=== PATIENT | female | born 1945 | race Caucasian/White ===

== ENCOUNTER 2020-03-08 00:13 | Outpatient (CLI) | payer MEDICARE, SELFPAY ==
[2020-03-08 17:34] LABS: SARS-CoV-2 RNA PCR Negative
== END 2020-03-08 00:14 | disposition home or self-care (01) ==
LOC: ANHCOVIDDT 00:14
PROVIDERS: PCP Family Medicine Adolescent Medicine; Visit Provider Orthopaedic Surgery
DX: Z01.812 Encounter for preprocedural laboratory examination (principal); Z11.59 Encounter for screening for other viral diseases
CPT/HCPCS: 87635; C9803; U0003

== ENCOUNTER 2020-03-10 00:19 | Day surgery (SDC) | payer MEDICARE, SELFPAY ==
[2019-11-22 13:35] VITALS: BMI 32.1
--- NOTE | 2020-03-07 14:18 | PC.NURSE ---
PT DENIES ANY CHANGE IN HEALTH OR MEDICATIONS SINCE PREVIOUS INTERVIEW. NEW DATE, TIME AND INSTRUCTIONS FOR PROCEEDURE REVIEWED WITH PT.
[2020-03-10] VITALS (14 sets, daily range): BP systolic 143–184; BP diastolic 63–82; PULSE 63–126; RESP 12–24; TEMP 36.1–36.3; O2SAT 97–100
[2020-03-10] MEDS: LACTATED RINGERS 1,000 ML 30 ML IV CONT ×2 (06:30→08:29)
--- NOTE | 2020-03-10 06:51 | WPDANESEPPF ---
Anes - Initial Pre Proc Eval Procedure: Operation Date: 03/10/20 07:30 Proposed Procedures p Left Knee Arthroscopy, Partial Medial And Lateral Meniscectomy, Debridement Of Osteochondral Defect - Mich Armando MD Date/Time: 03/10/20 06:51 Surgeon: Mich Armando MD Pre Op Diagnosis: Left Knee Medial & Lateral Meniscus Tears Patient Data Age: 75 Gender: F Height: 1.57 m Weight: 79.7 kg Last Vital Signs Temp 36.1 C L 03/10/20 06:22 Pulse 74 03/10/20 06:22 Resp 18 03/10/20 06:22 BP 160/75 H 03/10/20 06:22 Pulse Ox 98 03/10/20 06:22 Allergies Allergy/AdvReac Type Severity Reaction Status Date / Time cephalexin AdvReac Unknown NAUSEAA, Verified 03/10/20 06:32 VOMITING Home Medications Medication Instructions Recorded Confirmed Type gabapentin 100 mg HS 08/07/19 03/10/20 History pantoprazole 40 mg PO DAILY 08/07/19 03/10/20 History piroxicam 20 mg DAILY 08/07/19 03/10/20 History ropinirole 2 mg HS 08/07/19 03/10/20 History acetaminophen [Tylenol Extra 500 mg PO Q6H PRN 11/22/19 03/10/20 History Strength] calcium carbonate-vitamin D3 1 cap PO DAILY 11/22/19 03/10/20 History [Calcium 600 + D(3)] Patient hx anesthesia problems: none Family hx anesthesia problems: none PMFSH Past Medical History Medical History (Updated 03/10/20 @ 06:55 by Ian Alvarez MD) Arthritis Deep vein thrombosis 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 GERD (gastroesophageal reflux disease) Obesity Osteoarthritis of left knee Osteochondral defect of femoral condyle Restless leg syndrome Surgical History Surgical History History of hysterectomy Social History Social History Smoking status: Never smoker Gender identity (if verbalized by the patient): Female Anes - Eval Final PreProcedure Day of Procedure 03/10/20 06:51 Patient weight: obese Heart: regular rate and rhythm Lungs: clear to auscultation and normal air movement Airway: Mallampati scale class II Neurological: alert and oriented Last oral intake: >/= 8 hours ASA classification: II Emergent: no Anesthetic plan: proceed Anesthesia type and monitoring: general LMA Informed Consent: The patient's anesthetic plan and its attendant risks and benefits were discussed with the patient/family/POA. Questions were solicited and answers provided to the satisfaction of the patient/family/POA.
--- NOTE | 2020-03-10 07:14 | WPDHPUPDATE1 ---
History and Physical Update Update Date/Time: 03/10/20 07:14 History and Physical has been reviewed, including an updated exam of the patient. There are NO changes in the patient's condition. Risks, benefits, and alternatives have been discussed and questions answered. Patient agrees to proceed with procedure.
[2020-03-10] MEDS: ceFAZolin 2 GM/D5W 50 ML 2 GM/50 ML BAG IVPB (07:21)
[2020-03-10] MEDS: BUPIVACAINE/EPINEPHRINE 0.5% 10 ML VIAL 20 ML INFILTRATE (07:46)
--- NOTE | 2020-03-10 08:27 | PM.PROC ---
Procedure Note - Detailed Date of procedure: 03/10/20 Pre-op diagnosis: Left Knee Medial & Lateral Meniscus Tears 1. Lateral condyle OCD lesion. 2. Medial and lateral meniscus tear. Post-op diagnosis: same Procedure performed: 1. Debridement of lateral chondyle osteochondral defect. 2. Arthroscopic partial medial and lateral meniscectomy. Description of procedure: The large 2 cm lateral condyle defect was unstable. The lateral meniscus was torn extensively in the same lateral region. The fragment was detached from the lateral synovium and removed with the grasper. The base of the defect on the femur was debrided. Both the medial and lateral meniscus were treated with meniscectomy. Grade four chondromalacia was seen diffusely in the medial and lateral compartements. Anesthesia: GETA Surgeon: Mich Armando MD Estimated blood loss (mL): 5 Complications: None Condition: stable Findings: Procedure Details: The patient was identified and the surgical site confirmed and signed in the preoperative holding area. Antibiotics were started per protocol. She was brought to the operative room and transferred to the OR table. A general anesthetic was administered. Supine position with the operative lower extremity position in the leg payton after placement of a well padded tourniquet. The leg support was lowered and the contralateral limb was supported with a soft bolster. The knee was prepped and draped in the usual sterile fashion. A time-out was performed. The portal sites were marked and infiltrated with 0.5% Marcaine 20 mL. The limb was exsanguinated and the tourniquet inflated to 300 mL Hg. Standard inferolateral and inferomedial portals were established. Inflow was obtained with the saline pump. The camera was introduced. Diagnostic inspection of the joint was accomplished. The menisci were debrided with the arthroscopic shaver and punches until stable. The lateral defect was removed as described above. The arthroscopic instruments were removed. The tourniquet released and wounds closed with subcutaneous 3-0 Monocryl absorbable suture. Steri strips and a sterile dressing were applied. A light elastic wrap was placed. The patient was extubated and brought to the recovery room in stable condition.
[2020-03-10] MEDS: hydrALAZINE HCL 20 MG/ML VIAL 5 MG IV PUSH (09:31)
--- NOTE | 2020-03-10 09:58 | SUR.PHASEI ---
[address] shirley of pt bp being consistently>170 order given for hydralizine 5mgx2. 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
[2020-03-10] MEDS: hydrALAZINE HCL 20 MG/ML VIAL 10 MG IV PUSH (11:03)
--- NOTE | 2020-03-10 12:48 | SUR.PHASEII ---
1100 dr shirley notified of pt bp still being 170-180 systolic, hr 70-80's, 10mg iv hydralizine ordered per dr shirley
--- NOTE | 2020-03-10 12:50 | SUR.PHASEII ---
1200 dr shirley in post op, wants pt to go to emergency room. 1205 pt wheeled to er in a recliner per lauren perez rn. pt alertx4 on room air. spouse in surgery parking lot, notified by yokasta bennett, that pt is going to er and that he can go see her there. pt admitted then taken to er room, report given to er nurse by lauren perez rn.
--- NOTE | 2020-03-10 13:35 | SUR.PHASEII ---
1100 pain on lt side sikh has just about subsided per pt
--- NOTE | 2020-03-10 13:45 | SUR.PHASEII ---
11:40am patient returned from bathroom to room. Patient was crying. RN asked patient what was wrong. Patient said my face is numb on the left side. RN contacted Dr. Alvarez by phone and at this time he said to continue to monitor. Patient was all upset a couple minutes later, heart rate had increased to 1teens-120s, and she said, My throat feels weird and I'm scared. RN contacted Dr. Alvarez again and he came bedside about 11:50am to assess patient. He then told RN to take patient to ED for a stroke work-up. RN contacted PACU sr. manager corporate communications for next steps in getting patient to ED for a stroke work-up. Patient was transported to ED about 12:05pm by chair. RN spoke with patient's , Ed, and told him to report to the ED where he could be with his . RN assured him that she was safe for the time being.
== END 2020-03-10 12:05 | disposition home or self-care (01) ==
PROVIDERS: PCP Family Medicine Adolescent Medicine; Visit Provider Orthopaedic Surgery
PROC: (CPT 29870; principal; 2020-03-10 07:30)
DX: M23.332 Other meniscus derangements, other medial meniscus, left knee (principal); M23.362 Other meniscus derangements, other lateral meniscus, left knee; M89.8X6 Other specified disorders of bone, lower leg; M94.262 Chondromalacia, left knee; G25.81 Restless legs syndrome; K21.9 Gastro-esophageal reflux disease without esophagitis; E66.9 Obesity, unspecified; Z68.32 Body mass index [BMI] 32.0-32.9, adult
CPT/HCPCS: 29880; J0131; J0360; J0690; J1100; J2405; J2704; J3010; J7120

== ENCOUNTER 2020-03-10 12:09 | Inpatient (IN) | payer MEDICARE, SELFPAY ==
[2020-03-10] VITALS (9 sets, daily range): BP systolic 153–185; BP diastolic 78–123; PULSE 73–115; RESP 16–20; TEMP 36.1–36.4; O2SAT 94–99; BMI 32.5
--- NOTE | ~2020-03-10 | US_ITS ---
EXAMINATION: US carotid duplex BI DATE: 03/10/2020 17:36 INDICATION: Possible CVA, slurred speech TECHNIQUE: Grayscale, color Doppler, and pulsed Doppler images of the cervical carotid arteries were obtained. The degree of vessel stenosis is placed in one of the following categories: normal, <50%, 5 0-69%, >=70% but less than near-occlusion, near-occlusion, or total occlusion. Note that percent sten osis relative to normal distal artery lumen diameter is indirectly measured from velocity measurement s as described by Chandler, et al. Radiology 2003; 229:340-346. COMPARISON: None. FINDINGS: RIGHT: The right common carotid artery (CCA) peak systolic velocity (PSV) is 71 cm/s. The right internal car otid artery (ICA) PSV is 58 cm/s. The right ICA end-diastolic velocity (EDV) is 20 cm/s. The right IC A/CCA PSV ratio is 0.8. Grayscale and color Doppler images yield an estimate of less than 50% diamete r reduction from plaque in the ICA. The external carotid artery (ECA) PSV is 75 cm/s. There is antegr olive flow in the right vertebral artery. LEFT: The left CCA PSV is 76 cm/s. The left ICA PSV is 48 cm/s. The left ICA EDV is 17 cm/s. The left ICA/C CA PSV ratio is 0.6. Grayscale and color Doppler images yield an estimate of less than 50% diameter r eduction from plaque in the ICA. The ECA PSV is 81 cm/s. There is antegrade flow in the left vertebra l artery. IMPRESSION: 1. <50% stenosis in the right internal carotid artery. 2. <50% stenosis in the left internal carotid artery. Reviewed, dictated and finalized at location A.
--- NOTE | ~2020-03-10 | CT_ITS ---
EXAMINATION: CT brain wo con DATE: 03/10/2020 12:27 INDICATION: Slurred speech. Hypertension. TECHNIQUE: Computed tomography (CT) of the head was performed without intravenous contrast. The mA wa s adjusted according to patient size. Iterative reconstruction technique was employed. Exam dose: 60 5.33 mGy-cm total exam DLP. COMPARISON: None FINDINGS: No intracranial mass lesion or hemorrhage, midline shift or mass effect is evident. CT is n ot sensitive for detection of hyperacute ischemic cerebrovascular accident. No subdural or epidural hematoma. Normal ventricular size. No fracture or bone destruction of the cranial vault. The mastoid air cells and paranasal sinuses are normally developed and aerated. IMPRESSION: No acute intracranial finding The CT head examination results were telephone by Dr. Sexton to emergency room physician Dr. Berumen on 03/10/2020 at 1232 hours Reviewed, dictated and finalized at Location A. Reviewed, dictated and finalized at location A. IMPRESSION: No acute intracranial finding The CT head examination results were telephone by Dr. Sexton to emergency room ph ysician Dr. Berumen on 03/10/2020 at 1232 hours
--- NOTE | ~2020-03-10 | XR_ITS ---
EXAMINATION: XR chest 1V portable EXAM DATE: 03/10/2020 13:08 INDICATION: Stroke protocol. TECHNIQUE: Portable AP frontal chest x-ray was obtained. Comparison is made to prior examination from There are bony degenerative changes. . FINDINGS: The lungs are clear. There are no pleural effusions. Cardiac silhouette is prominent but magnified on this AP technique. There is no pneumothorax suspected. The bones and soft tissues are unremarkable. IMPRESSION: No acute cardiopulmonary findings. Reviewed, dictated and finalized at location B.
--- NOTE | ~2020-03-10 | MR_ITS ---
EXAMINATION: MR brain/brain stem wo/w con EXAM DATE: 03/10/2020 18:31 INDICATION: Left top lip numbness paresthesia. Temporary left hand numbness. Stroke like symptoms. TECHNIQUE: Magnetic resonance imaging (MRI) of the brain/brain stem obtained without contrast. Candice al T1, axial diffusion, gradient echo (T2*), T1, T2, FLAIR sequences obtained. There is no prior st udy for comparison. FINDINGS: There are no areas of restricted diffusion to suggest acute infarction. There is no acute hemorrhage seen on the T2*, a hemosiderin sensitive sequence. No intraparenchymal brain mass lesion. There is mild periventricular and subcortical T2/FLAIR signal hyperintensity, nonspecific but probab ly related to small vessel ischemic disease (microangiopathy). There is mild prominence of the sulc i and ventricles related to cerebral atrophy. There are no extra-axial collections. Flow voids are seen in the cerebral arteries on the T2-weighted sequences consistent with their expected patency. The orbits are unremarkable. Soft tissue is unremarkable. IMPRESSION: 1. No acute intracranial findings. 2. Chronic age related findings. Reviewed, dictated and finalized at location G.
[2020-03-10 12:17] LABS: Glucose Point of Care 122 (65-105)
--- NOTE | 2020-03-10 12:25 | ED.NEUROSD ---
HPI - Neuro Symptoms/Deficit General Chief Complaint: Suspected CVA Stated Complaint: possible CVA Time Seen by Provider: 03/10/20 12:23 Source: patient and family Mode of arrival: wheelchair Limitations: no limitations History of Present Illness HPI Narrative: Pt presented via outpatient surgery with Dr. Armando for strokelike symptoms. Patient presented after having left lateral and medial meniscal tear repair by Dr. Armando, when following the procedure she was found to be hypertensive with difficult to control blood pressure, and found to have some lip and left-sided facial numbness as well as numbness in her left hand. With concern for strokelike symptoms, patient was transported to our emergency department for assessment. At the time of assessment, patient states symptoms have resolved. Symptoms lasted less than 1 hour. She is tearful, but denies any difficulty with speech or numbness in her face, upper or lower extremity. Patient denies any pain. She denies any chest pain or shortness of breath. No history of stroke or TIA in the past. Related Data Home Medications Medication Instructions Recorded Confirmed gabapentin 100 mg HS 08/07/19 03/10/20 pantoprazole 40 mg PO DAILY 08/07/19 03/10/20 piroxicam 20 mg DAILY 08/07/19 03/10/20 ropinirole 2 mg HS 08/07/19 03/10/20 Calcium 600 + D(3) 1 cap PO DAILY 11/22/19 03/10/20 acetaminophen [Tylenol Extra 500 mg PO Q6H PRN 11/22/19 03/10/20 Strength] Allergies Allergy/AdvReac Type Severity Reaction Status Date / Time cephalexin AdvReac Unknown NAUSEAA, Verified 03/10/20 06:32 VOMITING Review of Systems Review of Systems: Narrative: CONSTITUTIONAL: Denies fever, chills, or sweats. EYES: Denies visual changes, redness, or discharge. ENT: Denies rhinorrhea, congestion, sore throat, or otalgia. CARDIOVASCULAR: Denies chest pain, palpitations, or edema. RESPIRATORY: Denies cough or dyspnea. GASTROINTESTINAL: Denies abdominal pain, nausea, vomiting, or diarrhea. GENITOURINARY: Denies dysuria or hematuria. SKIN: Denies rash or itching. MUSCULOSKELETAL: Denies back pain, joint pain, or myalgia. NEUROLOGIC: Denies headache, numbness, or weakness. [facility] Past Medical History Medical History Arthritis Deep vein thrombosis 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 GERD (gastroesophageal reflux disease) Obesity Osteoarthritis of left knee Osteochondral defect of femoral condyle Restless leg syndrome Surgical History Surgical History History of hysterectomy Family History Family History (Updated 03/10/20 @ 16:14 by Elsa Zamora RN) Mother Cerebrovascular accident Sibling History of blood clots Hypertension Sibling History of blood clots Sibling Diabetes mellitus Hypertension Breast cancer Son Hypertension Social History Social History Smoking status: Never smoker Second hand tobacco smoke exposure: Yes (Spouse smokes currently) Alcohol intake: never Substance use: never Substance use type: does not use Gender identity (if verbalized by the patient): Female Spiritual care concerns: No Exam Narrative: Exam Narrative: GENERAL: Awake, alert, conversant, tearful HEAD: Normocephalic, atraumatic. EYES: PERRLA and EOMI. ENT: Nares clear, no rhinorrhea or epistaxis. Mucous membranes moist. NECK: Supple. CHEST: No respiratory distress, breathing even and non labored HEART: Regular rate, sinus rhythm ABDOMEN:Non distended, non tender EXTREMITIES: Left lower extremity is bandaged, decreased range of motion as would be expected postoperatively. Patient able to wiggle toes, able to lift leg off the bed. SKIN: Warm, dry, no rash. NEURO:No focal deficits. Alert and oriented x3. Finger to nose intact bilaterally. EOMs intact without nystagmus. No facial droop/asymmetr
[2020-03-10 12:47] LABS: Basophils Percent Auto 0.3 % (0.2-1.2); Hematocrit 44.6 % (37.0-47.0); Hemoglobin 14.5 g/dL (12.0-15.0); Immature Granulocyte Absolute 0.08 K/mm3 (0.00-0.031); Immature Granulocyte Percent A 0.9 % (0-0.5); Mean Corpuscular HGB Conc 32.5 g/dl (32-36); Mean Corpuscular Hemoglobin 31.8 pg (26-34); Mean Corpuscular Volume 97.8 fl (80-100); Mean Platelet Volume 9.7 fl (7.4-10.4); Monocytes Absolute Auto 0.1 K/mm3 (0.1-0.6); Neutrophils Absolute Auto 8.4 K/mm3 (1.3-6.7); Neutrophils Percent Auto 93.4 % (45.5-73.1); Platelet Count Result 252 k/mm3 (150-375); Red Blood Count 4.56 M/mm3 (4.2-5.4); Red Cell Distribution Width 13.6 % (11.5-14.5)
[2020-03-10 12:59] LABS: Alanine Aminotransferase 15 U/L (4-35); Albumin Level 4.3 g/dL (3.5-5.1); Alkaline Phosphatase 134 U/L (38-126); Aspartate Amino Transferase 24 U/L (14-36); Bilirubin,Total 0.2 mg/dL (0.2-1.3); Blood Urea Nitrogen 18 mg/dL (7-17); Calcium 9.5 mg/dL (8.4-10.2); Carbon Dioxide 25 mmol/L (22-30); Chloride 109 mmol/L (98-107); Estimated CRCL calculation 50 ml/min; Estimated Glomerular Filt Rate > 60; Glucose 140 mg/dL (65-105); Potassium 3.7 mmol/L (3.4-5.0); Sodium 142 mmol/L (137-145)
[2020-03-10] MEDS: SODIUM CHLORIDE 0.9% IV 1,000 ML 999 ML IV CONT (13:08)
[2020-03-10] MEDS: ONDANSETRON INJ 4 MG/2 ML VIAL IV PUSH (13:08)
[2020-03-10 13:11] LABS: Troponin I < 0.012 ng/mL (0.000-0.034)
[2020-03-10 13:13] LABS: Partial Thromboplastin Time 28.9 SECONDS (22.3-36.8)
[2020-03-10 13:29] LABS: Add Urine Microscopic? YES; Appearance Urine Clear (Clear); Bilirubin Urine Negative (Negative); Blood Urine Negative (Negative); Color Urine Colorless (Yellow); Glucose Urine UA 1+ mg/dL (Negative); Ketones Urine Negative (Negative); Leukocyte Esterase Ur Negative LEU/UL (Negative); Nitrate Urine Negative (Negative); Protein Urine Negative (Negative); RBC Urine 0-2 /hpf (0-2); Specific Grav Ur 1.009 (1.001-1.035); Urobilinogen Urine Negative mg/dL (<2.0)
[2020-03-10 13:36] LABS: Lymphocytes Percent Auto 4.4 % (18.3-44.2)
--- NOTE | 2020-03-10 13:55 | ECG_ITS ---
Measurements Intervals [place] Rate: 112 P: 33 MN: 177 QRS: -34 QRSD: 92 T: 51 QT: 350 QTc: 478 Interpretive Statements SINUS TACHYCARDIA LEFT AXIS DEVIATION POOR R WAVE PROGRESSION, ANTERIOR LEADS BASELINE ARTIFACT- I, II, III, AVR, AVL, AVF, V1-V6 ABNORMAL ECG Electronically Signed On 03-10-2020 14:04:14 CDT by Remington Onofre D.O.
--- NOTE | 2020-03-10 15:52 | PC.NURSE ---
This patient, Lizette Stauffer, was admitted to Medical Room 246-01. Patient/family oriented to hospital policies and general routines including ID bracelet, bed and alarms, visiting hours, pain management, procedures, bathroom and other care routines, personal items, smoking policy, room service/diet, and visiting hours. Valuables list has been completed. Information on how to activate the Rapid Response Team has been discussed. Patient/Family are encouraged to report perceived risks to care and to ask questions if they do not understand what they are told or what they should do.
--- NOTE | 2020-03-10 17:00 | PM.IMHP ---
H&P: HPI History of Present Illness Chief complaint: Left-sided paresthesias. Narrative: Lizette Stauffer is a pleasant and relatively healthy 75-year-old female with restless leg syndrome, GERD, and history of DVT who presented to the emergency department earlier this afternoon from outpatient surgery, status post left meniscal tear repair, for evaluation of left-sided paresthesias. She was in her usual state health when she reported for surgery today and it sounds as though her surgery was uneventful. Postoperatively, she complained of feeling the need to urinate frequently and was also experiencing a headache in the left restoration region. It was noted that her systolic blood pressures were running continuously above 170, and she was given hydralazine 10 milligrams without much benefit. At 11:40, the patient returned from the restroom and at that time was tearful and anxious. She reported to the nurse that the left side of her face felt numb and that she was having some tingling in the left-sided fingers and toes as well as feelings of difficulty swallowing. At the time my evaluation, she has some mild paresthesias of the left upper lip and she has had complete resolution of the paresthesias in fingers and toes. She continues to have a sharp headache, now diffusely across the forehead, and urinary urgency and frequency. She has no history of hypertension however she believes that her blood pressure has been elevated before in the postoperative phase. She has not had any auditory or visual changes today, but she goes on to say that rarely she will experience ?blurry lines? in the left visual field that are fleeting and occur at random. Additionally, she reports that on occasion she feels as though she has a difficult time swallowing which she has always attributed to GERD. She does not typically have headaches nor does she have a history of migraines. She is not experiencing vertigo. There has been no mention of facial droop and she denies dysarthria. No focal weakness. She has not had chest pain, palpitations, pleuritic pain, or shortness of breath. No dysuria or hematuria. Regarding her recent surgery, she is having minimal discomfort of the left knee. Review of Systems Review of Systems: Narrative: Twelve systems were reviewed with pertinent positives and negatives as per HPI. No recent cold or flu symptoms. She denies fever, chills, and sweats. No recent travel or sick contacts. She denies cough and shortness of breath. She has a history of DVT in 2016 for which she took warfarin. She denies nausea and vomiting. Except as documented, all other systems were reviewed and are negative. [facility] Past Medical History Medical History (Updated 03/10/20 @ 17:34 by Kirstie Valadez PA-C) Arthritis Deep vein thrombosis (~10/2015) 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 GERD (gastroesophageal reflux disease) Osteoarthritis of left knee Osteochondral defect of femoral condyle Restless leg syndrome Surgical History Surgical History (Updated 03/10/20 @ 17:29 by Kirstie Valadez PA-C) History of hysterectomy History of left knee surgery (~02/2020) Partial lateral and medial meniscectomy with debridement of lateral condyle osteochondral defect. History of lumbar surgery Radiofrequency neurotomy. Prolapse of female pelvic organs (~06/2016) Status post colpocleisis per Dr. Bunch. Family History Family History Mother Cerebrovascular accident Sibling History of blood clots Hypertension Sibling History of blood clots Sibling Diabetes mellitus Hypertension Breast cancer Son Hypertension Social History Social History (Updated 03/10/20 @ 17:30 by Kirstie Valadez PA-C) Social History: Surrogate decision maker: Gilberto Stauffer, spouse. Code status: Full code. Smoking status: Never smoker Second hand tobacco smoke exposure: Yes (Spouse smokes currently) Alcohol
[2020-03-10] MEDS: ACETAMINOPHEN 500 MG TABLET PO (18:45)
--- NOTE | 2020-03-10 18:50 | PC.NURSE ---
Patient bladder scan revealed 62mL's in bladder pre voiding.
[2020-03-10 19:51] LABS: Troponin I 0.069 ng/mL (0.000-0.034)
[2020-03-10] MEDS: GABAPENTIN 100 MG CAPSULE BY MOUTH (20:03)
[2020-03-10 20:51] LABS: Thyroid Stimulating Hormone Reflex 0.575 uIU/mL (0.465-4.68)
[2020-03-11] VITALS (11 sets, daily range): BP systolic 143–160; BP diastolic 68–92; PULSE 60–87; RESP 16–17; TEMP 36–36.5; O2SAT 96–99
[2020-03-11] MEDS: ACETAMINOPHEN 500 MG TABLET PO (03:34)
[2020-03-11 05:15] LABS: Hematocrit 37.6 % (37.0-47.0); Hemoglobin 12.2 g/dL (12.0-15.0); Mean Corpuscular HGB Conc 32.4 g/dl (32-36); Mean Corpuscular Hemoglobin 31.9 pg (26-34); Mean Corpuscular Volume 98.4 fl (80-100); Mean Platelet Volume 10.2 fl (7.4-10.4); Platelet Count Result 250 k/mm3 (150-375); Red Blood Count 3.82 M/mm3 (4.2-5.4); Red Cell Distribution Width 13.8 % (11.5-14.5); White Blood Count 10.2 K/mm3 (4.5-10.0)
[2020-03-11 05:28] LABS: Alanine Aminotransferase 12 U/L (4-35); Albumin Level 3.5 g/dL (3.5-5.1); Alkaline Phosphatase 106 U/L (38-126); Aspartate Amino Transferase 21 U/L (14-36); Bilirubin,Total 0.2 mg/dL (0.2-1.3); Blood Urea Nitrogen 14 mg/dL (7-17); Calcium 8.8 mg/dL (8.4-10.2); Carbon Dioxide 25 mmol/L (22-30); Chloride 108 mmol/L (98-107); Cholesterol 178 mg/dL (0-200); Estimated CRCL calculation 57 ml/min; Estimated Glomerular Filt Rate > 60; Glucose 98 mg/dL (65-105); HDL Direct 66 mg/dL; Magnesium 2.1 mg/dL (1.6-2.3); Potassium 3.8 mmol/L (3.4-5.0); Sodium 136 mmol/L (137-145); Triglycerides 82 mg/dL (<150)
[2020-03-11 05:40] LABS: LDL Cholesterol Direct 79 mg/dL
[2020-03-11] MEDS: PANTOPRAZOLE 40 MG TABLET PO (08:24)
[2020-03-11] MEDS: ASPIRIN 81 MG CHEWABLE TABLET PO (08:24)
[2020-03-11 08:41] LABS: Troponin I 0.088 ng/mL (0.000-0.034)
--- NOTE | 2020-03-11 09:05 | ECG_ITS ---
Measurements Intervals [place] Rate: 78 P: 0 CO: 149 QRS: -35 QRSD: 94 T: 18 QT: 389 QTc: 443 Interpretive Statements SINUS RHYTHM LEFT AXIS DEVIATION VOLTAGE CRITERIA FOR LVH BORDERLINE ECG Electronically Signed On 03-11-2020 13:14:56 CDT by Remington Onofre D.O.
[2020-03-11 09:49] LABS: Troponin I 0.078 ng/mL (0.000-0.034)
--- NOTE | 2020-03-11 12:05 | PM.IMPN ---
Progress Note: A&P Assessment and Plan (1) Hypertensive urgency: Code(s): I16.0 - Hypertensive urgency Status: Acute Assessment and Plan: Blood pressure postoperatively was as high as 182/123, and was treated with hydralazine in PACU with minimal change. Later readings were in 160s/80s without further medication and thus I think some of her readings can be attributed to her anxiety, which has improved. BP this morning was 143/68. For now we will continue to monitor blood pressures closely and add p.r.n. medication for severe hypertension. She has not required any further prn Hydralazine (2) Paresthesias: Code(s): R20.2 - Paresthesia of skin Status: Acute Assessment and Plan: Etiology is not entirely clear and had she not had the sensation changes in the left lip, perhaps we could have blamed the other paresthesias on positioning during her surgery in addition to her anxiety postoperatively. Given her elevated blood pressures, there is concern for possible ischemia. Paresthesias of the lip and toes have resolved but persists in bilateral fingertips. CT and MRI of the brain are both negative for infarction or hemorrhage. Carotid Doppler ultrasounds demonstrate <50% stenosis of right and left ICA Echocardiogram have been ordered and will await results Dr. Rangel was consulted by the ED physician and his input is appreciated. (3) Elevated troponin: Code(s): R79.89 - Other specified abnormal findings of blood chemistry Status: Acute Assessment and Plan: Initial troponin was <0.012. On repeat increased to 0.069, 0.088, 0.078. She denies chest pain and vitals are stable. Repeat EKG does not demonstrate ST changes. Cardiology has been consulted and recommendations are appreciated. Echo has been performed and will await results. At this time, I do not believe this is related to ACS. It is possible this related to neurologic process, although neuro workup has been negative. Continue to monitor on telemetry. (4) 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: Code(s): M23.307 - Other meniscus derangements, unspecified meniscus, left knee Status: Acute Assessment and Plan: Postoperative day 1 s/p partial lateral and medial left meniscectomy with debridement of left lateral condyle osteochondral defect by Dr. Armando. Wound care and DVT prophylaxis deferred to Dr. Armando. Continue analgesics as needed for pain (5) Restless leg syndrome: Code(s): G25.81 - Restless legs syndrome Status: Acute Assessment and Plan: Continue ropinirole at bedtime. (6) GERD (gastroesophageal reflux disease): Code(s): K21.9 - Gastro-esophageal reflux disease without esophagitis Status: Acute Assessment and Plan: She endorses occasional dysphagia which she attributes to GERD. Continue pantoprazole. Recommend outpatient GI consult for possible endoscopy given occasional dysphagia with GERD. Subjective Date/time seen: 03/11/20 12:05 Interval history: Date of service: 03/11/2020 Ms. Stauffer reports she is doing better today. She complains of tingling in her fingertips bilaterally, but denies numbness or tingling in perioral region or feet as she was previously experiencing. She complains of feeling flushed in her face and she was dizzy this morning. She also complains of headache in her left temporal region and behind her eye. She denies visual changes, blurred vision. or double vision. She denies dysphagia or speech changes. She denies chest pain, shortness of breath, arm pain, jaw pain, diaphoresis, palpitations, lightheadedness, or anxiety. She is having mild discomfort in her knee with movement but her pain is well controlled. She is urinating regularly and denies dysuria or hematuria. She has not had a bowel movement since surgery. Her appetite has been good. Review of Systems Review of Systems: Narrat
[2020-03-11 12:51] LABS: Troponin I 0.076 ng/mL (0.000-0.034)
--- NOTE | 2020-03-11 13:47 | PM.CNCAR ---
Assessment and Plan Assessment and plan (1) Elevated troponin: Code(s): R79.89 - Other specified abnormal findings of blood chemistry Status: Acute Assessment and Plan: Probably related to recent knee surgery and uncontrolled hypertension. Doubt ACS as no symptoms related to it. Echo does not show any wall motion abnormalities. Troponin trending down. (2) Paresthesias: Code(s): R20.2 - Paresthesia of skin Status: Acute (3) Hypertensive urgency: Code(s): I16.0 - Hypertensive urgency Status: Acute Assessment and Plan: Start Bystolic 10 mg daily. Advise to maintain a low sodium diet. Keep her one more day to monitor BP with this medication. History of Present Illness History of Present Illness Consult date/time: 03/11/20 13:47 Reason for consult: Hypertension and elevated troponins. 75 yr old woman with history of left leg DVT in 2016 presented to hospital for left meniscal surgery yesterday and had noted high BP perioperatively. Yesterday she also reported lip numbness, left fingers and toes tingling, headache. Today only left finger tingling is present and lip and toes symptoms resolved. She admits to intermittent left finger tingling in the past. Denies chest pain, sob, palpitations, orthopnea, edema. She reports normally limited at walking 1/2 block due to chronic back pain and then left knee pain. Troponins showed mild elevated at 0.088 that trended down to 0.076. Echo shows EF is normal at 65-70%, grade I diastolic dysfunction, mild AI, trace TR. EKG shows sinus tachycardia with BRWP. Telemetry shows sinus tach up to 140 bpm, patient thinks she was getting up to go to restroom at that time. MRI brain is unremarkable. Carotid duplex is unremarkable, CXR is unremarkable. Reason For Visit: Left-sided paresthesias. Review of Systems Review of Systems: All systems reviewed & are unremarkable except as noted in HPI and below Constitutional: Constitutional: Reports as per HPI and Denies fatigue Cardiovascular: Cardiovascular: Reports as per HPI, Denies chest pain and Denies leg edema Respiratory: Respiratory: Reports as per HPI and Reports dyspnea on exertion Gastrointestinal: Gastrointestinal: Reports as per HPI and Denies abdominal pain Genitourinary: Genitourinary: Reports as per HPI Musculoskeletal: Musculoskeletal: Reports as per HPI, Reports back pain and Reports arthralgias Neurologic: Reports as per HPI and Reports headache(s) [facility] Past Medical History Medical History (Updated 03/11/20 @ 13:04 by Valerie Otoole PA-C) Arthritis Deep vein thrombosis (~10/2015) 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 GERD (gastroesophageal reflux disease) Osteoarthritis of left knee Osteochondral defect of femoral condyle Restless leg syndrome Surgical History Surgical History (Updated 03/10/20 @ 17:29 by Kirstie Valadez PA-C) History of hysterectomy History of left knee surgery (~02/2020) Partial lateral and medial meniscectomy with debridement of lateral condyle osteochondral defect. History of lumbar surgery Radiofrequency neurotomy. Prolapse of female pelvic organs (~06/2016) Status post colpocleisis per Dr. Bunch. Family History Family History Mother Cerebrovascular accident Sibling History of blood clots Hypertension Sibling History of blood clots Sibling Diabetes mellitus Hypertension Breast cancer Son Hypertension Social History Social History (Updated 03/10/20 @ 17:30 by Kirstie Valadez PA-C) Social History: Surrogate decision maker: Gilberto Stauffer, spouse. Code status: Full code. Smoking status: Never smoker Second hand tobacco smoke exposure: Yes (Spouse smokes currently) Alcohol intake: never Substance use: never Substance use type: does not use Additional living arrangements comments: Patient lives with her in [place]. Gender ident
[2020-03-11] MEDS: NEBIVOLOL HCL 5 MG TABLET 10 MG PO (15:06)
--- NOTE | 2020-03-11 16:38 | ECHO_ITS ---
Patient Info Name: Lizette Stauffer Age: 75 years : 1945 Gender: Female Ht: 62 in Wt: 178 lbs BSA: 1.91 m2 HR: 63 bpm BP: 143 / 68 mmHg Technical Quality: Good Exam Date: 03/11/2020 9:27 AM Exam Location: [facility] Pulmonary Exam Room: 246 Patient Status: Outpatient Admit Date: 03/10/2020 Staff Ordering Physician: Kirstie Valadez PA-C [employer] Bleacher: Reva Goss RDCS Attending Provider: Valerie Otoole PA-C Referring Physician: Rory GRACE; Exam Type: CA echo doppler color flow Study Info Indications - s/p op htn stroke symptoms Complete two-dimensional, color flow and Doppler transthoracic echocardiogram is performed. Summary 1. Left ventricular chamber dimension is normal. 2. Left ventricular systolic function is hyperdynamic, estimated at >70%. 3. The left ventricular diastolic function is grade I diastolic dysfunction. 4. E/e' 10 is mildly elevated. 5. There is mild aortic valve regurgitation. 6. The mitral valve has mildly calcified annulus. 7. There is trace tricuspid valve regurgitation. Left Ventricle E/e' 10 is mildly elevated. Left ventricular chamber dimension is normal. Left ventricular systolic function is hyperdynamic, estimated at >70%. The left ventricular diastolic function is grade I diastolic dysfunction. Right Ventricle Right ventricular chamber dimension is normal. Right ventricular systolic function is normal. Left Atria Left atrial chamber dimension is normal. Right Atria Right atrial chamber dimension is normal. Aortic Valve The aortic valve is trileaflet. There is no aortic valve stenosis. There is mild aortic valve regurgitation. Pulmonic Valve There is no pulmonic regurgitation. Mitral Valve The mitral valve has mildly calcified annulus. There is no mitral valve stenosis. There is no mitral valve regurgitation. Tricuspid Valve RVSP is not calculated due to an inadequate TR jet. There is trace tricuspid valve regurgitation. Pericardium/Pleural There is no pericardial effusion. Inferior Vena Cava Normal inferior vena cava with >50% collapse upon inspiration consistent with normal right atrial pressure, 5 mmHg. Aorta The aortic root size at the sinus of Valsalva is normal. Left Ventricular Outflow Tract Name Value Normal LVOT 2D LVOT Diameter 2.0 cm LVOT Doppler LVOT Peak Gradient 10 mmHg LVOT Mean Gradient 5 mmHg LVOT VTI 31 cm LVOT VTI/AV VTI Ratio 0.9 LVOT Stroke Volume 95 ml LVOT CO 19.5 l/min LVOT CI 10.2 l/min/m2 Pulmonic Valve Name Value Normal PV Doppler PV Peak Gradient 3 mmHg Mitral Valve
--- NOTE | 2020-03-11 17:26 | WPDNEURCNPN ---
Assessment and Plan Assessment and plan (1) Elevated troponin: Code(s): R79.89 - Other specified abnormal findings of blood chemistry Status: Acute (2) GERD (gastroesophageal reflux disease): Code(s): K21.9 - Gastro-esophageal reflux disease without esophagitis Status: Acute (3) Restless leg syndrome: Code(s): G25.81 - Restless legs syndrome Status: Acute (4) Paresthesias: Code(s): R20.2 - Paresthesia of skin Status: Acute (5) Hypertensive urgency: Code(s): I16.0 - Hypertensive urgency Status: Acute (6) Arm paresthesia, left: Code(s): R20.2 - Paresthesia of skin Status: Acute (7) Hypertensive crisis, unspecified: Code(s): I16.9 - Hypertensive crisis, unspecified Status: Acute (8) Obesity: Code(s): E66.9 - Obesity, unspecified Status: Acute (9) Osteoarthritis of left knee: Code(s): M17.12 - Unilateral primary osteoarthritis, left knee Status: Acute (10) 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: Code(s): M23.307 - Other meniscus derangements, unspecified meniscus, left knee Status: Acute (11) Osteochondral defect of femoral condyle: Code(s): M95.8 - Other specified acquired deformities of musculoskeletal system Status: Acute (12) TIA (transient ischemic attack): Code(s): G45.9 - Transient cerebral ischemic attack, unspecified Status: Acute Additional Plan patient most likely had a TIA related to significantly elevated blood pressure and also of course she has a family history of the same and she is overweight she should continue the present dose of aspirin she is being monitored and the the blood pressure needs to be reasonably well controlled in his background present management needs to be continued Consult date: 03/11/20 Time Seen: 17:00 HPI: Lizette Stauffer is a 75 year old female She was admitted with planned surgery on her left knee and postoperatively she developed significantly elevated blood pressure and paresthesias affecting her left side of the face and the left fingers which have fluctuated in the past couple of days she denies any headache nausea vomiting chest pain shortness of breath there is no previous history of the same issue in the past however there is a positive family history that the mother has had is stroke The face paresthesias have abated and the left finger paresthesias are still present she is on aspirin Cardiology has seen the patient and has recommended no further workup the echocardiogram is unrevealing brain MRI is negative carotid studies are negative Review of Systems Review of Systems: All systems reviewed & are unremarkable except as noted in HPI and below PMFSH Past Medical History Medical History Arthritis Deep vein thrombosis (~10/2015) 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 GERD (gastroesophageal reflux disease) Osteoarthritis of left knee Osteochondral defect of femoral condyle Restless leg syndrome Surgical History Surgical History History of hysterectomy History of left knee surgery (~02/2020) Partial lateral and medial meniscectomy with debridement of lateral condyle osteochondral defect. History of lumbar surgery Radiofrequency neurotomy. Prolapse of female pelvic organs (~06/2016) Status post colpocleisis per Dr. Bunch. Family History Family History Mother Cerebrovascular accident Sibling History of blood clots Hypertension Sibling History of blood clots Sibling Diabetes mellitus Hypertension Breast cancer Son Hypertension Social History Social History Social History: Surrogate decision maker: Gilberto Stauffer, spouse. Code status: Full code. Smoking status: Never smoker Second hand tobacco sm
[2020-03-11] MEDS: GABAPENTIN 100 MG CAPSULE BY MOUTH (20:30)
[2020-03-11] MEDS: rOPINIRole HCL 1 MG TABLET 2 MG BY MOUTH (22:40)
[2020-03-12] VITALS (9 sets, daily range): BP systolic 150–156; BP diastolic 76–82; PULSE 44–66; RESP 15–20; TEMP 35.8–36.6; O2SAT 97–100
[2020-03-12] MEDS: ONDANSETRON INJ 4 MG/2 ML VIAL IV PUSH (08:29)
--- NOTE | 2020-03-12 08:56 | PM.PNCARD ---
Progress Note: A&P Assessment and Plan (1) Elevated troponin: Code(s): R79.89 - Other specified abnormal findings of blood chemistry Status: Acute Assessment and Plan: Probably related to recent knee surgery and uncontrolled hypertension and TIA. Doubt ACS as no symptoms related to it. Echo does not show any wall motion abnormalities. Troponin trending down. No further cardiac workup for this. (2) TIA (transient ischemic attack): Code(s): G45.9 - Transient cerebral ischemic attack, unspecified Status: Acute Assessment and Plan: Neurology following. TIA probably related to uncontrolled hypertension. On aspirin. Start Pravastatin 10 mg daily. As outpatient, would have her wear 30 day event monitor from my office to check for arrhythmias such as PAF. (3) Hypertensive urgency: Code(s): I16.0 - Hypertensive urgency Status: Acute Assessment and Plan: Stop Bystolic as her HR went down to 40 bpm with it overnight and this morning. Start Losartan 50 mg daily and amlodipine 5 mg daily. Monitor HR and BP today. Subjective Date/time seen: 03/12/20 08:56 Reports feeling weak and nauseated this morning. Telemetry shows HR overnight and this morning went down to 40 bpm. Reports tingling in her left fingers resolved. No chest pain or sob. Exam Const: General: comfortable and no acute distress Neck: Neck: no JVD Carotids: no bruits Resp: Auscultation: clear to auscultation bilaterally, no crackles, no rales, no rhonchi and no wheezes Cardio: Rate: bradycardic Rhythm: regular rhythm Heart sounds: no murmurs GI: Inspection: non-distended Neuro: Speech: normal speech Extrem: Right lower extremity: no edema Left lower extremity: no edema Objective Data Vital Signs Vital Signs: Vital Signs - 24 hr 03/11/20 12:00 03/11/20 14:00 03/11/20 15:05 Temperature 97.5 F L Pulse Rate 72 64 Respiratory Rate 17 Blood Pressure 160/92 H Pulse Oximetry 99 03/11/20 15:06 03/11/20 16:00 03/11/20 20:00 Temperature Pulse Rate 72 75 71 Respiratory Rate Blood Pressure Pulse Oximetry 03/11/20 21:47 03/12/20 00:00 03/12/20 04:00 Temperature 97.7 F Pulse Rate 60 56 L 44 L Respiratory Rate 16 Blood Pressure 149/70 H Pulse Oximetry 96 03/12/20 05:54 Temperature 97.1 F L Pulse Rate 54 L Respiratory Rate 16 Blood Pressure 150/76 H Pulse Oximetry 100 Intake/Output Intake/Output: Intake & Output 03/09/20 03/10/20 03/11/20 03/12/20 23:59 23:59 23:59 23:59 Intake Total 1000 1645 680 Output Total 300 1975 1700 Balance 700 330 1020 Meds/Results Medications: Active Medications Generic Name Dose Route Start Last Admin Trade Name Freq PRN Reason Stop Dose Admin Acetaminophen 500 mg 03/10/20 17:47 03/11/20 03:34 Tylenol Tablet PO 500 mg Q6H PRN Administration Mild Pain (1-3) Hydrocodone Bitart/Acetaminophen 1 tab 03/10/20 22:18 03/11/20 20:30 [place] 5-325 Mg PO 1 tab Q6H PRN Administration Pain Rated 4-6 Amlodipine Besylate 5 mg 03/12/20 09:00 Norvasc PO QAM HAZEL Aspirin 81 mg 03/11/20 08:00 03/11/20 08:24 Aspirin Chewable PO 81 mg DAILY@0800 HAZEL Administration Calcium Carbonate 500 mg 03/11/20 09:00 03/11/20 08:24 Os-Ellis 500 +D Tablet PO 04/10/20 09:01 500 mg DAILY HAZEL Administration Gabapentin 100 mg 03/10/20 21:00 03/11/20 20:30 Neurontin BY MOUTH 100 mg HS HAZEL Administration Hydralazine HCl 10 mg 03/10/20 17:48 Apresoline Hcl Inj IV PUSH Q6H PRN SBP > 180 or DBP > 105 Losartan Potassium 50 mg 03/12/20 09:00 Cozaar PO DAILY HAZEL Ondansetron HCl 4 mg 03/10/20 14:04 03/12/20 08:29 Zofran Inj IV PUSH 4 mg Q4H PRN Administration Nausea Pantoprazole Sodium 40 mg 03/11/20 09:00 03/11/20 08:24 Protonix PO 40 mg DAILY HAZEL Administration Ropinirole HCl 2 mg 03/10/20 21:00 03/11/20 22:40 Re
--- NOTE | 2020-03-12 09:04 | PM.IMPN ---
Progress Note: A&P Assessment and Plan (1) TIA (transient ischemic attack): Code(s): G45.9 - Transient cerebral ischemic attack, unspecified Status: Acute Assessment and Plan: She was experiencing paresthesias of lips, toes, and fingertips. TIA felt to be related to uncontrolled hypertension. CT and MRI of the brain are both negative for infarction or hemorrhage. Carotid Doppler ultrasounds demonstrate <50% stenosis of right and left ICA Echocardiogram shows EF >70%, grade I diastolic dysfunction, mild AR, and trace TR Lipid panel is within normal limits. She has been started on pravastatin. Continue aspirin Continue to monitor BP. Neurology and Cardiology are following the patient and their recommendations are appreciated. Per Dr. Onofre's recommendation, plan for outpatient 30 day event monitor to evaluate for arrhythmias (2) Hypertensive urgency: Code(s): I16.0 - Hypertensive urgency Status: Acute Assessment and Plan: Blood pressure postoperatively was as high as 182/123, and was treated with hydralazine in PACU with minimal change. Later readings were in 160s/80s. BP this morning was 150/76. She had been started on bystolic however she was having symptomatic bradycardia in the 40s She has been transitioned to amlodipine 5 mg and losartan 50 mg. We will continue to monitor her HR and BP overnight. Hopeful discharge tomorrow if she tolerates medications. (3) Elevated troponin: Code(s): R79.89 - Other specified abnormal findings of blood chemistry Status: Acute Assessment and Plan: Initial troponin was <0.012. On repeat increased to 0.069, 0.088, 0.078. She denied chest pain and vitals are stable. Repeat EKG does not demonstrate ST changes. This was felt to be related to recent surgery, HTN, and TIA. She remains asymptomatic. Cardiology has been consulted and recommendations are appreciated. Echocardiogram shows EF >70%, grade I diastolic dysfunction, mild AR, trace TR, no wall motion abnormalities Continue to monitor on telemetry. (4) 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: Code(s): M23.307 - Other meniscus derangements, unspecified meniscus, left knee Status: Acute Assessment and Plan: Postoperative day 2 s/p partial lateral and medial left meniscectomy with debridement of left lateral condyle osteochondral defect by Dr. Armando on 03/10/2020. Wound care and weight bearing per Dr. Armando. Continue analgesics as needed for pain Begin PT/OT She is scheduled for outpatient physical therapy on Friday morning, she will call to reschedule. (5) Restless leg syndrome: Code(s): G25.81 - Restless legs syndrome Status: Acute Assessment and Plan: Continue ropinirole at bedtime. (6) GERD (gastroesophageal reflux disease): Code(s): K21.9 - Gastro-esophageal reflux disease without esophagitis Status: Acute Assessment and Plan: She endorses occasional dysphagia and feels the food is getting ?hung up? in her throat. Continue pantoprazole. Recommend outpatient GI consult for possible endoscopy given occasional dysphagia with GERD. Subjective Date/time seen: 03/12/20 09:04 Interval history: Date of service: 03/12/2020 She reports she is doing well at this time. This morning, she had some symptoms of lightheadedness, nausea, and fatigue. Her heart rate was in the 40s at this time. She is now feeling better and is relatively asymptomatic. Her numbness and tingling in her fingertips has resolved. She has not had any additional neurologic symptoms. She denies visual changes, speech changes, changes in sensation, or headache. She continues to endorse some difficulty with swallowing and she states it feels like food is getting hung up in her throat. Her knee pain is well controlled at this time. She has been getting up and walking to the bathroom with assistance. She is
[2020-03-12] MEDS: LOSARTAN POTASSIUM 50 MG TABLET PO (09:50)
[2020-03-12] MEDS: ASPIRIN 81 MG CHEWABLE TABLET PO (09:50)
[2020-03-12] MEDS: PANTOPRAZOLE 40 MG TABLET PO (09:50)
[2020-03-12] MEDS: PRAVASTATIN SODIUM 10 MG TABLET PO (12:00)
[2020-03-12] MEDS: AMLODIPINE BESYLATE 5 MG TABLET PO (12:00)
--- NOTE | 2020-03-12 18:46 | WPDNEUROPN ---
Progress Note: A&P Assessment and Plan (1) TIA (transient ischemic attack): Code(s): G45.9 - Transient cerebral ischemic attack, unspecified Status: Acute (2) Restless leg syndrome: Code(s): G25.81 - Restless legs syndrome Status: Acute (3) Elevated troponin: Code(s): R79.89 - Other specified abnormal findings of blood chemistry Status: Acute (4) GERD (gastroesophageal reflux disease): Code(s): K21.9 - Gastro-esophageal reflux disease without esophagitis Status: Acute (5) Paresthesias: Code(s): R20.2 - Paresthesia of skin Status: Acute (6) Osteoarthritis of left knee: Code(s): M17.12 - Unilateral primary osteoarthritis, left knee Status: Acute (7) 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: Code(s): M23.307 - Other meniscus derangements, unspecified meniscus, left knee Status: Acute (8) Osteochondral defect of femoral condyle: Code(s): M95.8 - Other specified acquired deformities of musculoskeletal system Status: Acute Additional Plan the patient should continue aspirin and pravastatin rest of the management as per the solvent mixer and the software systems analyst she can be safely discharged as for as from my standpoint and I will be happy to follow her and if need be when she follows of with her primary care physician she is quite happy with resolution of her symptomatology Review of Systems Review of Systems: All systems reviewed & are unremarkable except as noted in HPI and below Exam Const: General: comfortable and no acute distress HENMT: General nose exam: Normal nares present Mouth: Yes moist mucous membranes Eyes: General: appearance normal, both eyes and all related structures Neck: Neck: supple and no JVD Resp: Effort & Inspection: normal respiratory effort Auscultation: clear to auscultation bilaterally Cardio: Rate: regular rate Rhythm: regular rhythm GI: Auscultation: normal bowel sounds Skin: General skin exam: normal color and no rashes or lesions noted Neuro: Other: patient remains awake alert well oriented time place and person speech and language functions are normal cranial examination is normal motor examination sensory examination is normal Extrem: Other: left knee recent arthroscopic surgery and some swelling of the left knee otherwise no neurological deficit per se Psych: Mental Status: mental status grossly normal Objective Data Vital Signs Vital Signs: Vital Signs - 24 hr 03/11/20 20:00 03/11/20 21:47 03/12/20 00:00 Temperature 36.5 C Pulse Rate 71 60 56 L Respiratory Rate 16 Blood Pressure 149/70 H Pulse Oximetry 96 03/12/20 04:00 03/12/20 05:54 03/12/20 08:00 Temperature 36.2 C L Pulse Rate 44 L 54 L 53 L Respiratory Rate 16 Blood Pressure 150/76 H Pulse Oximetry 100 03/12/20 12:00 03/12/20 14:00 03/12/20 16:00 Temperature 35.8 C L Pulse Rate 66 51 L 57 L Respiratory Rate 15 Blood Pressure 156/82 H Pulse Oximetry 97 Intake/Output Intake/Output: Intake & Output 03/09/20 03/10/20 03/11/20 03/12/20 23:59 23:59 23:59 23:59 Intake Total 1000 1645 1690 Output Total 300 1975 3165 Balance 448 -820 -2422 Meds/Results Medications: Active Medications Generic Name Dose Route Start Last Admin Trade Name Timmy PRN Reason Stop Dose Admin Acetaminophen 500 mg 03/10/20 17:47 03/11/20 03:34 Tylenol Tablet PO 500 mg Q6H PRN Administration Mild Pain (1-3) Hydrocodone Bitart/Acetaminophen 1 tab 03/10/20 22:18 03/12/20 17:59 [place] 5-325 Mg PO 1 tab Q6H PRN Administration Pain Rated 4-6 Amlodipine Besylate 5 mg 03/12/20 09:00 03/12/20 12:00 Norvasc PO 5 mg QAM HAZEL Administration Aspirin 81 mg 03/11/20 08:00 03/12/20 09:50 Aspirin Chewable PO 81 mg DAILY@0800 [facility] Administration Calcium Carbonate 500 mg 03/11/20 09:00 03/12/20 09:50 Os-Ellis 500 +D Tablet PO 04/10/20 09:01 500 mg
[2020-03-12] MEDS: rOPINIRole HCL 1 MG TABLET 2 MG BY MOUTH (21:00)
[2020-03-12] MEDS: GABAPENTIN 100 MG CAPSULE BY MOUTH (21:01)
[2020-03-13] VITALS: PULSE 46
[2020-03-13 04:00] VITALS: PULSE 49
[2020-03-13 06:00] VITALS: BP 149/81; PULSE 52; RESP 21; TEMP 36.4; O2SAT 100
--- NOTE | 2020-03-13 07:51 | PM.PNCARD ---
Progress Note: A&P Assessment and Plan (1) Elevated troponin: Code(s): R79.89 - Other specified abnormal findings of blood chemistry Status: Acute Assessment and Plan: Probably related to recent knee surgery and uncontrolled hypertension and TIA. Doubt ACS as no symptoms related to it. Echo does not show any wall motion abnormalities. Troponin trending down. No further cardiac workup for this. (2) TIA (transient ischemic attack): Code(s): G45.9 - Transient cerebral ischemic attack, unspecified Status: Acute Assessment and Plan: Neurology following. TIA probably related to uncontrolled hypertension. On aspirin and Pravastatin 10 mg daily. Will have my caregivers non medical place a 30 day event monitor from my office to check for arrhythmias such as PAF. (3) Hypertensive urgency: Code(s): I16.0 - Hypertensive urgency Status: Acute Assessment and Plan: Stop Bystolic as her HR went down to 40 bpm with it overnight and this morning. Increase Losartan 100 mg daily and on amlodipine 5 mg daily. May d/c home from cardiology standpoint after receiving event monitor. F/U with me in next 2 weeks. Subjective Date/time seen: 03/13/20 07:51 Denies chest pain or sob or tingling in her fingers. She reports intermittent ringing in her ears and has a history of it prior to hospitalization. Exam Const: General: comfortable and no acute distress Neck: Neck: no JVD Carotids: no bruits Resp: Auscultation: clear to auscultation bilaterally, no crackles, no rales, no rhonchi and no wheezes Cardio: Rate: regular rate Rhythm: regular rhythm Heart sounds: no murmurs GI: Inspection: non-distended Neuro: Speech: normal speech Extrem: Right lower extremity: no edema Left lower extremity: no edema Objective Data Vital Signs Vital Signs: Vital Signs - 24 hr 03/12/20 08:00 03/12/20 12:00 03/12/20 14:00 Temperature 96.5 F L Pulse Rate 53 L 66 51 L Respiratory Rate 15 Blood Pressure 156/82 H Pulse Oximetry 97 03/12/20 16:00 03/12/20 20:00 03/12/20 22:00 Temperature 97.8 F Pulse Rate 57 L 61 56 L Respiratory Rate 20 Blood Pressure 151/82 H Pulse Oximetry 99 03/13/20 00:00 03/13/20 04:00 03/13/20 06:00 Temperature 97.6 F Pulse Rate 46 L 49 L 52 L Respiratory Rate 21 H Blood Pressure 149/81 H Pulse Oximetry 100 Intake/Output Intake/Output: Intake & Output 03/10/20 03/11/20 03/12/20 03/13/20 23:59 23:59 23:59 23:59 Intake Total 1000 1645 1690 750 Output Total 300 1975 3165 1000 Balance 234 -151 -6021 -649 Meds/Results Medications: Active Medications Generic Name Dose Route Start Last Admin Trade Name Freq PRN Reason Stop Dose Admin Acetaminophen 500 mg 03/10/20 17:47 03/11/20 03:34 Tylenol Tablet PO 500 mg Q6H PRN Administration Mild Pain (1-3) Hydrocodone Bitart/Acetaminophen 1 tab 03/10/20 22:18 03/12/20 17:59 [place] 5-325 Mg PO 1 tab Q6H PRN Administration Pain Rated 4-6 Amlodipine Besylate 5 mg 03/12/20 09:00 03/12/20 12:00 Norvasc PO 5 mg QAM HAEZL Administration Aspirin 81 mg 03/11/20 08:00 03/12/20 09:50 Aspirin Chewable PO 81 mg DAILY@0800 [facility] Administration Calcium Carbonate 500 mg 03/11/20 09:00 03/12/20 09:50 Os-Ellis 500 +D Tablet PO 04/10/20 09:01 500 mg DAILY [facility]EL Administration Gabapentin 100 mg 03/10/20 21:00 03/12/20 21:01 Neurontin BY MOUTH 100 mg HS HAZEL Administration Hydralazine HCl 10 mg 03/10/20 17:48 Apresoline Hcl Inj IV PUSH Q6H PRN SBP > 180 or DBP > 105 Losartan Potassium 50 mg 03/12/20 09:00 03/12/20 09:50 Cozaar PO 50 mg DAILY HAZEL Administration Ondansetron HCl 4 mg 03/10/20 14:04 03/12/20 08:29 Zofran Inj IV PUSH 4 mg Q4H PRN Administration Nausea Pantoprazole Sodium 40 mg 03/11/20 09:00 03/12/20 09:50 Protonix PO 40 mg DAILY HAZEL Administration Pravastatin Sodium 1
[2020-03-13 08:00] VITALS: PULSE 77
[2020-03-13] MEDS: ASPIRIN 81 MG CHEWABLE TABLET PO (08:35)
[2020-03-13] MEDS: PRAVASTATIN SODIUM 10 MG TABLET PO (08:36)
[2020-03-13] MEDS: AMLODIPINE BESYLATE 5 MG TABLET PO (08:36)
[2020-03-13] MEDS: PANTOPRAZOLE 40 MG TABLET PO (08:36)
[2020-03-13] MEDS: LOSARTAN POTASSIUM 100 MG TABLET PO (09:30)
--- NOTE | 2020-03-13 10:17 | WPDNEUROPN ---
Progress Note: A&P Assessment and Plan (1) TIA (transient ischemic attack): Code(s): G45.9 - Transient cerebral ischemic attack, unspecified Status: Acute (2) Elevated troponin: Code(s): R79.89 - Other specified abnormal findings of blood chemistry Status: Acute (3) GERD (gastroesophageal reflux disease): Code(s): K21.9 - Gastro-esophageal reflux disease without esophagitis Status: Acute (4) Restless leg syndrome: Code(s): G25.81 - Restless legs syndrome Status: Acute (5) Paresthesias: Code(s): R20.2 - Paresthesia of skin Status: Acute (6) Hypertensive urgency: Code(s): I16.0 - Hypertensive urgency Status: Acute (7) Arm paresthesia, left: Code(s): R20.2 - Paresthesia of skin Status: Acute (8) Hypertensive crisis, unspecified: Code(s): I16.9 - Hypertensive crisis, unspecified Status: Acute (9) Obesity: Code(s): E66.9 - Obesity, unspecified Status: Acute (10) Osteoarthritis of left knee: Code(s): M17.12 - Unilateral primary osteoarthritis, left knee Status: Acute (11) 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: Code(s): M23.307 - Other meniscus derangements, unspecified meniscus, left knee Status: Acute (12) Osteochondral defect of femoral condyle: Code(s): M95.8 - Other specified acquired deformities of musculoskeletal system Status: Acute (13) Ringing in ears: Code(s): H93.19 - Tinnitus, unspecified ear Status: Acute Additional Plan ringing in ears with negativeMRI for AVM or tumor will need audiogram as outpatient Review of Systems Review of Systems: All systems reviewed & are unremarkable except as noted in HPI and below Exam Const: General: cooperative, comfortable, no acute distress, well developed, alert and awake Nutritional Appearance: average body habitus Limitations: no limitations HENMT: Head: normal to inspection Eyes: General: appearance normal, both eyes and all related structures Visual Peck: normal visual peck by confrontation Periorbital: periorbital findings normal Eyelids: eyelids normal Conjunctivae: conjunctivae normal Sclera: sclerae normal Cornea: corneas normal Pupils: Equal, round and reactive pupils present EOM: EOMs intact bilaterally Neck: Neck: full ROM Resp: Effort & Inspection: normal respiratory effort Auscultation: clear to auscultation bilaterally Cardio: Rate: regular rate Rhythm: regular rhythm GI: Auscultation: normal bowel sounds Neuro: General: patient oriented x3, gait normal and moves all extremities Cranial nerves: Yes CN's II-XII intact bilaterally Speech: normal speech Motor exam (neuro): 5/5 motor strength present throughout Sensory Exam: normal sensation Coordination: [id number] test normal Extrem: General: normal to inspection Psych: Appearance: grossly normal Objective Data Vital Signs Vital Signs: Vital Signs - 24 hr 03/12/20 12:00 03/12/20 14:00 03/12/20 16:00 Temperature 35.8 C L Pulse Rate 66 51 L 57 L Respiratory Rate 15 Blood Pressure 156/82 H Pulse Oximetry 97 03/12/20 20:00 03/12/20 22:00 03/13/20 00:00 Temperature 36.6 C Pulse Rate 61 56 L 46 L Respiratory Rate 20 Blood Pressure 151/82 H Pulse Oximetry 99 03/13/20 04:00 03/13/20 06:00 03/13/20 08:00 Temperature 36.4 C Pulse Rate 49 L 52 L 77 Respiratory Rate 21 H Blood Pressure 149/81 H Pulse Oximetry 100 Intake/Output Intake/Output: Intake & Output 03/10/20 03/11/20 03/12/20 03/13/20 23:59 23:59 23:59 23:59 Intake Total 1000 1645 1690 990 Output Total 300 1975 3165 1000 Balance 700 -330 -1475 -10 Meds/Results Medications: Active Medications Generic Name Dose Route Start Last Admin Trade Name Aubreyq PRN Reason Stop Dose Admin Acetaminophen 500 mg 03/10/20 17:47 03/11/20 03:34 Tylenol Tablet PO 500 mg Q6H PRN Administration M
[2020-03-13 12:00] VITALS: PULSE 56
[2020-03-13 14:00] VITALS: BP 132/62; PULSE 60; RESP 18; TEMP 36.5; O2SAT 98
--- NOTE | 2020-03-13 14:20 | PM.DS ---
DS: Admitting Diagnosis Admitting Diagnosis Admitting Diagnosis: Hypertensive urgency DS: Discharge Diagnosis Discharge Diagnosis (1) TIA (transient ischemic attack): Code(s): G45.9 - Transient cerebral ischemic attack, unspecified Status: Acute Assessment and Plan: She was experiencing paresthesias of lips, toes, and fingertips. She was seen in consultation by Neurology. CT and MRI of the brain were both negative for infarction or hemorrhage. Carotid Doppler ultrasounds demonstrated <50% stenosis of right and left ICA. Her lipid panel was within normal limits. She was felt to have a TIA secondary to uncontrolled hypertension. She was started on antihypertensives, pravastatin, and aspirin. She will also have a 30 day event monitor to evaluate for any arrhythmias. She is scheduled to follow-up with Dr. Rangel and Dr. Onofre. (2) Hypertensive urgency: Code(s): I16.0 - Hypertensive urgency Status: Acute Assessment and Plan: Blood pressure postoperatively was as high as 182/123, and was treated with hydralazine in PACU with minimal change. Later readings were in 160s/80s. She was started on Bystolic, however she was having symptomatic bradycardia in the 40s so this was discontinued. She was then started on losartan and amlodipine which she will continue as an outpatient. She tolerated these medications well. We discussed monitoring her blood pressure at home and recording readings for review by PCP and clinical specialist. (3) Elevated troponin: Code(s): R79.89 - Other specified abnormal findings of blood chemistry Status: Acute Assessment and Plan: Initial troponin was <0.012 and on repeat increased to 0.069, 0.088, 0.078. She denied chest pain and vitals were stable. Repeat EKG did not demonstrate ST changes. She was seen in consultation by cardiology, and this was felt to be related to recent surgery, HTN, and TIA. Her echo did not demonstrate any wall motion abnormalities. She remained asymptomatic. She will continue a 30 day event monitor and follow-up. (4) 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: Code(s): M23.307 - Other meniscus derangements, unspecified meniscus, left knee Status: Acute Assessment and Plan: She underwent lateral and medial left meniscectomy with debridement of left lateral condyle osteochondral defect by Dr. Armando on 03/10/2020. She was as high as a physical therapy and occupational therapy as an inpatient and she will continue outpatient physical therapy, per Dr. Corona. (5) Restless leg syndrome: Code(s): G25.81 - Restless legs syndrome Status: Acute Assessment and Plan: Continue ropinirole at bedtime. (6) GERD (gastroesophageal reflux disease): Qualifiers: Esophagitis presence: esophagitis presence not specified Qualified Code(s): K21.9 - Gastro-esophageal reflux disease without esophagitis Code(s): K21.9 - Gastro-esophageal reflux disease without esophagitis Status: Acute Assessment and Plan: She endorsed GERD with occasional dysphagia and felt that food gets ?hung up? in her throat. She will continue pantoprazole. I have recommended that she get an EGD as an outpatient given dysphagia. She will discuss this with her PCP at follow-up in 1 week. DS: Summary Hospital Course Reason for hospitalization: Left-sided paresthesia Hospital Course: Date of admission: 03/10/2020 Date of discharge: 03/13/2020 Lizette Stauffer this 75-year-old female with a past medical history significant for GERD and recent left knee meniscus repair on 03/10/2020 who presented to the emergency department following her outpatient surgery with complaints of temporal region headache, tingling in the left-sided fingers and toes, difficulty swallowing, and paresthesias of the left upper lip. Her blood pressures were elevated in the 170s in the PACU without much benefit from IV hydrala
== END 2020-03-13 16:20 | disposition home or self-care (01) | DRG 69 ==
LOC: ANHED 14:17 → ANH2MED 14:27
PROVIDERS: Physician Assistant; Admitting Provider Family Medicine; Emergency Provider Emergency Medicine; PCP Family Medicine Adolescent Medicine; Visit Provider Hospitalist
DX: G45.9 Transient cerebral ischemic attack, unspecified (principal); I16.0 Hypertensive urgency; R79.89 Other specified abnormal findings of blood chemistry; M23.307 Other meniscus derangements, unspecified meniscus, left knee; R20.2 Paresthesia of skin; G25.81 Restless legs syndrome; K21.9 Gastro-esophageal reflux disease without esophagitis; M17.12 Unilateral primary osteoarthritis, left knee; E66.9 Obesity, unspecified; Z68.32 Body mass index [BMI] 32.0-32.9, adult; Z90.710 Acquired absence of both cervix and uterus; Z86.718 Personal history of other venous thrombosis and embolism
CPT/HCPCS: 36415; 70450; 70553; 71045; 80053; 80061; 81001; 82607; 83735; 84443; 84484; 85025; 85027; 85610; 85730; 93005; 93306; 93880; 96361; 96374; 96376; 97161; 97165; 99285; A9270; A9577; G0378; J0360; J0690; J1100; J2405; J2704; J3010; J7030; J7120

== ENCOUNTER 2020-03-19 16:11 | Emergency (ER) | payer MEDICARE, SELFPAY ==
[2020-03-19] VITALS (7 sets, daily range): BP systolic 142–156; BP diastolic 73–88; PULSE 66–87; RESP 14–96; TEMP 37.1; O2SAT 21–99
--- NOTE | ~2020-03-19 | CT_ITS ---
EXAMINATION: CTA brain carotid DATE: 03/19/2020 17:01 INDICATION: Dizziness TECHNIQUE: Computed tomography (CT) of the head was performed without and subsequently with 100 cc Om nipaque 350 intravenous contrast. The mA was adjusted according to patient size. Iterative reconstruc tion technique was employed. Sagittal and coronal reconstructions. Three-dimensional reconstructions were performed by the technologist. Exam dose: 1581.54 mGy-cm total exam DLP. COMPARISON: 03/10/2020 carotid duplex examination 03/10/2020 CT brain 03/10/2020 MRI brain/brainstem FINDINGS: There is tortuosity of the proximal common carotid arteries bilaterally. There is no apprec iable plaque formation within the common carotid arteries, carotid bulbs or cervical portions of the internal carotid arteries. There is mild calcified plaque of the carotid siphon portion of the internal carotid arteries. The an terior middle and posterior cerebral arteries are intact. The [place] is intact. No intracranial mass lesion or hemorrhage or cerebrovascular accident is evident. There is nonspecifi c diminished attenuation of the subcortical and periventricular cerebral white matter, likely due to chronic small vessel ischemic changes. Normal ventricular size. No subdural or epidural hematoma. No orbital mass lesion. The mastoid air cells and the included paranasal sinuses are normally developed and aerated. No fracture or bone destruction of the cranial vault. IMPRESSION: Cerebral atherosclerosis and chronic small vessel ischemic changes of the cerebral white matter Reviewed, dictated and finalized at [facility]. Reviewed, dictated and finalized at [facility].
--- NOTE | ~2020-03-19 | XR_ITS ---
XR chest 2V DATE: 03/19/2020 16:43 INDICATION: Dizziness. Nausea. Weakness. TECHNIQUE: AP and lateral views COMPARISON: 03/10/2020 portable AP chest FINDINGS: There are bibasilar infiltrates and/atelectasis. Heart size is within normal limits. No pulmonary vascular congestion or pleural effusion or pneumotho rax. Diffuse osteopenia. Thoracolumbar scoliosis. IMPRESSION: Mild bibasilar infiltrate and/atelectasis Reviewed, dictated and finalized at [facility].
--- NOTE | 2020-03-19 16:00 | ECG_ITS ---
Measurements Intervals [place] Rate: 78 P: -11 UT: 143 QRS: -34 QRSD: 94 T: 10 QT: 372 QTc: 424 Interpretive Statements SINUS RHYTHM LEFT AXIS DEVIATION VOLTAGE CRITERIA FOR LVH BASELINE WANDER- V1 BORDERLINE ECG Electronically Signed On 03-20-2020 7:02:37 CDT by Remington Onofre D.O.
--- NOTE | 2020-03-19 16:26 | ED.GENADULT ---
HPI - General Adult General Chief complaint: Weakness Stated complaint: dizzy History of Present Illness HPI narrative: Patient is a 75 y/o female complaining of moderate dizziness for over 1 week. She describes her dizziness as a room spinning sensation. She states that her dizziness is worse with movement. She has some nausea, but no vomiting. Of note, she had left knee surgery over one week ago, and her her symptoms started after her surgery. Related Data Home Medications Medication Instructions Recorded Confirmed gabapentin 100 mg HS 08/07/19 03/10/20 pantoprazole 40 mg PO DAILY 08/07/19 03/10/20 piroxicam 20 mg DAILY 08/07/19 03/10/20 ropinirole 2 mg HS 08/07/19 03/10/20 Calcium 600 + D(3) 1 cap PO DAILY 11/22/19 03/10/20 acetaminophen [Tylenol Extra 500 mg PO Q6H PRN 11/22/19 03/10/20 Strength] Allergies Allergy/AdvReac Type Severity Reaction Status Date / Time cephalexin AdvReac Unknown NAUSEAA, Verified 03/20/20 13:32 VOMITING Review of Systems Constitutional: Constitutional: Denies chills, Denies fever(s), Denies headache(s) and Denies weakness Eyes: Eyes: Denies blurry vision ENT: Denies headache(s) and Denies neck pain Cardiovascular: Cardiovascular: Denies chest pain and Denies dyspnea Respiratory: Respiratory: Denies cough and Denies dyspnea Gastrointestinal: Gastrointestinal: Denies abdominal pain, Denies diarrhea, Reports nausea and Denies vomiting Genitourinary: Genitourinary: Denies hematuria and Denies dysuria Musculoskeletal: Musculoskeletal: Denies back pain and Denies neck pain Neurologic: Reports dizziness, Denies syncope, Denies headache(s) and Denies weakness [facility] Social History Social History (System 03/20/20 @ 13:32 by Kourtney Liu) Social History: Surrogate decision maker: Gilberto Stauffer, spouse. Code status: Full code. Smoking status: Never smoker Second hand tobacco smoke exposure: Yes (Spouse smokes currently) Alcohol intake: never Substance use: never Substance use type: does not use Additional living arrangements comments: Patient lives with her in [place]. Gender identity (if verbalized by the patient): Female Spiritual care concerns: No Exam Const: General: no acute distress and well developed Orientation/consciousness: oriented to person, oriented to place, oriented to time and patient oriented x3 HENMT: Head: normocephalic Ears: external ears normal General nose exam: Normal external nose present Eyes: General: appearance normal, both eyes and all related structures Conjunctivae: conjunctivae normal Neck: Neck: normal visual inspection and full ROM Chest: Chest palpation & inspection: normal inspection of the chest and no tenderness Resp: Effort & Inspection: normal respiratory effort Auscultation: clear to auscultation bilaterally Cardio: Rate: regular rate Rhythm: regular rhythm GI: GI Palp: No abdominal tenderness and Yes Soft to palpation Skin: General skin exam: normal color and turgor normal Neuro: General: oriented to person, oriented to place, oriented to time and patient oriented x3 Cranial nerves: Yes CN's II-XII intact bilaterally Cognition (Neuro): normal cognition Speech: normal speech Motor exam (neuro): 5/5 motor strength present throughout Sensory Exam: normal sensation Coordination: [id number]-[id number] test normal and jglj-qi-[id number] test normal Extrem: General: normal to inspection, full ROM and no pedal edema Psych: Appearance: grossly normal Mental Status: mental status grossly normal Affect: normal affect Course Reevaluation(s) Reevaluation #1: Rechecked. Patient feels better. She has no nausea or vomiting at this time, although she is still slightly dizzy Date: 03/19/20 Time: 20:14 Vital Signs Vital signs: Vital Signs Temperature 37.1 C 03/19/20 16:02 Pulse Rate 85 03/19/20 16:02 Respiratory Rate 96 H 03/19/20 16:02 Blood Pressure 156/73 H 03/19/20 16:02 Puls
[2020-03-19 16:27] LABS: Basophils Percent Auto 0.5 % (0.2-1.2); Eosinophils Absolute Auto 0.3 K/mm3 (0-0.3); Eosinophils Percent Auto 5.1 % (0-4.4); Hematocrit 42.9 % (37.0-47.0); Hemoglobin 13.9 g/dL (12.0-15.0); Immature Granulocyte Absolute 0.04 K/mm3 (0.00-0.031); Immature Granulocyte Percent A 0.6 % (0-0.5); Lymphocytes Absolute Auto 0.97 K/mm3 (0.9-3.2); Lymphocytes Percent Auto 15.4 % (18.3-44.2); Mean Corpuscular HGB Conc 32.4 g/dl (32-36); Mean Corpuscular Volume 98.8 fl (80-100); Mean Platelet Volume 9.9 fl (7.4-10.4); Monocytes Absolute Auto 0.7 K/mm3 (0.1-0.6); Monocytes Percent Auto 11.1 % (2.6-8.5); Neutrophils Absolute Auto 4.2 K/mm3 (1.3-6.7); Neutrophils Percent Auto 67.3 % (45.5-73.1); Platelet Count Result 219 k/mm3 (150-375); Red Blood Count 4.34 M/mm3 (4.2-5.4); Red Cell Distribution Width 12.8 % (11.5-14.5); White Blood Count 6.3 K/mm3 (4.5-10.0)
[2020-03-19 16:38] LABS: Alanine Aminotransferase 16 U/L (4-35); Alkaline Phosphatase 128 U/L (38-126); Aspartate Amino Transferase 26 U/L (14-36); Bilirubin,Total 0.6 mg/dL (0.2-1.3); Blood Urea Nitrogen 21 mg/dL (7-17); Calcium 9.3 mg/dL (8.4-10.2); Carbon Dioxide 26 mmol/L (22-30); Chloride 102 mmol/L (98-107); Estimated CRCL calculation 57 ml/min; Estimated Glomerular Filt Rate > 60; Glucose 105 mg/dL (65-105); Potassium 3.9 mmol/L (3.4-5.0); Sodium 139 mmol/L (137-145)
[2020-03-19] MEDS: MECLIZINE HCL 25 MG TABLET PO (17:17)
[2020-03-19 17:32] LABS: Add Urine Microscopic? YES; Appearance Urine Clear (Clear); Bilirubin Urine Negative (Negative); Blood Urine 1+ (Negative); Color Urine Straw (Yellow); Glucose Urine UA Negative (Negative); Ketones Urine Negative (Negative); Leukocyte Esterase Ur Negative LEU/UL (Negative); Nitrate Urine Negative (Negative); Protein Urine Negative (Negative); RBC Urine 0-2 /hpf (0-2); Specific Grav Ur 1.009 (1.001-1.035); Squamous Epithelial Cell Urine Occasional /hpf (Few); Urobilinogen Urine Negative mg/dL (<2.0); WBC Urine 0-3 /hpf
== END 2020-03-19 20:35 | disposition home or self-care (01) ==
PROVIDERS: Emergency Provider Emergency Medicine; PCP Family Medicine Adolescent Medicine
DX: R42 Dizziness and giddiness (principal)
CPT/HCPCS: 36415; 70496; 70498; 71046; 80053; 81001; 85025; 93005; 99284; A9270; Q9967

== ENCOUNTER 2020-04-17 07:49 | Outpatient (CLI) | payer MEDICARE, SELFPAY | END 2020-04-17 07:50 | disposition home or self-care (01) | LOC: ANHAUDIO 07:50 | PROVIDERS: PCP Family Medicine Adolescent Medicine; Visit Provider Psychiatry & Neurology Neurology | DX: H93.19 Tinnitus, unspecified ear (principal) | CPT/HCPCS: 92557; 92567 ==

== ENCOUNTER 2020-05-08 00:44 | Outpatient (CLI) | payer MEDICARE, SELFPAY ==
[2020-05-08 19:34] LABS: SARS-CoV-2 RNA PCR Negative
== END 2020-05-08 00:45 | disposition home or self-care (01) ==
LOC: ANHCOVIDDT 00:44
PROVIDERS: Orthopaedic Surgery; PCP Family Medicine Adolescent Medicine; Visit Provider Internal Medicine Gastroenterology
DX: Z01.812 Encounter for preprocedural laboratory examination (principal); Z20.828 Contact with and (suspected) exposure to other viral communicable diseases
CPT/HCPCS: 87635; C9803; U0003

== ENCOUNTER 2020-05-10 02:31 | Day surgery (SDC) | payer MEDICARE, SELFPAY ==
[2020-05-01 14:09] VITALS: BMI 32.0
--- NOTE | 2020-05-08 14:38 | WPDANESEPPF ---
Anes - Initial Pre Proc Eval Procedure: Operation Date: 05/10/20 10:00 Proposed Procedures p Esophagogastroduodenoscopy - Triston Guallpa MD Date/Time: 05/08/20 14:38 Surgeon: Triston Guallpa MD Pre Op Diagnosis: dysphagia, GERD Patient Data Age: 75 Gender: F Height: 1.57 m Weight: 79.5 kg Allergies Allergy/AdvReac Type Severity Reaction Status Date / Time cephalexin AdvReac Unknown NAUSEAA, Verified 05/10/20 09:55 VOMITING Home Medications Medication Instructions Recorded Confirmed Type gabapentin 100 mg HS 08/07/19 05/01/20 History pantoprazole 40 mg PO DAILY 08/07/19 05/01/20 History ropinirole 2 mg HS 08/07/19 05/01/20 History Calcium 600 + D(3) 1 cap PO DAILY 11/22/19 05/01/20 History amlodipine [Norvasc] 5 mg PO QAM #20 tablet 03/13/20 05/01/20 Rx aspirin [Children's Aspirin] 81 mg PO DAILY@0800 #30 tablet 03/13/20 05/01/20 Rx losartan 100 mg PO DAILY #20 tablet 03/13/20 05/01/20 Rx pravastatin 10 mg PO QAM #30 tablet 03/13/20 05/01/20 Rx meclizine 25 mg PO TID PRN #20 tablet 03/19/20 05/01/20 Rx diclofenac sodium 75 mg 75 mg PO BID 03/22/20 05/01/20 History tablet,delayed release Patient hx anesthesia problems: none Family hx anesthesia problems: none PMFSH Past Medical History Medical History (Updated 05/10/20 @ 10:00 by Luther Escoto DO) Arthritis Deep vein thrombosis (~10/2015) 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 GERD (gastroesophageal reflux disease) Hypertension Osteoarthritis of left knee Osteochondral defect of femoral condyle Restless leg syndrome TIA (transient ischemic attack) 2019 Surgical History Surgical History (System 03/20/20 @ 13:32 by Kourtney Liu) History of hysterectomy History of left knee surgery (~02/2020) Partial lateral and medial meniscectomy with debridement of lateral condyle osteochondral defect. History of lumbar surgery Radiofrequency neurotomy. Prolapse of female pelvic organs (~06/2016) Status post colpocleisis per Dr. Bunch. Social History Social History (System 03/20/20 @ 13:32 by Kourtney Liu) Social History: Surrogate decision maker: Gilberto Stauffer, spouse. Code status: Full code. Smoking status: Never smoker Second hand tobacco smoke exposure: Yes (Spouse smokes currently) Alcohol intake: never Substance use: never Substance use type: does not use Additional living arrangements comments: Patient lives with her in [place]. Gender identity (if verbalized by the patient): Female Spiritual care concerns: No Anes - Eval Final PreProcedure Day of Procedure 05/08/20 14:38 Patient weight: obese Heart: regular rate and rhythm Lungs: clear to auscultation and normal air movement Airway: Mallampati scale class II Neurological: alert and oriented Last oral intake: >/= 8 hours ASA classification: III Emergent: no Anesthetic plan: proceed Anesthesia type and monitoring: general GIVS and standard monitoring Informed Consent: The patient's anesthetic plan and its attendant risks and benefits were discussed with the patient/family/POA. Questions were solicited and answers provided to the satisfaction of the patient/family/POA.
[2020-05-10 09:57] VITALS: BP 172/83; PULSE 63; RESP 20; TEMP 36.5; O2SAT 98
--- NOTE | 2020-05-10 10:10 | WPDGICN ---
Assessment and Plan Assessment and plan (1) Dysphagia: Code(s): R13.10 - Dysphagia, unspecified Status: Acute Assessment and Plan: Patient has difficulty swallowing along with longstanding history of GE reflux disease. Plan is to continue pantoprazole daily. Anti-reflux measures. EGD to evaluate difficulty swallowing will be planned today. (2) TIA (transient ischemic attack): Code(s): G45.9 - Transient cerebral ischemic attack, unspecified Status: Acute (3) GERD (gastroesophageal reflux disease): Qualifiers: Esophagitis presence: esophagitis presence not specified Qualified Code(s): K21.9 - Gastro-esophageal reflux disease without esophagitis Code(s): K21.9 - Gastro-esophageal reflux disease without esophagitis Status: Acute GI Consult Note Consult date/time: 05/10/20 10:10 HPI: Lizette Stauffer is a 75 year old female Seen in evaluation at the request of Dr. Ang exam room in. Patient has a history of GE reflux for many years treated with proton pump inhibitor. She complains of difficulty swallowing over the last month or so. She notices food catching her throat. She states that this passes more slowly. It appears to be more solid foods compared to liquid foods. Patient denies any bleeding or weight loss. She does give a history of a TIA 1 month ago for which she appears to have recovered. Patient presents today for endoscopic evaluation of difficulty swallowing. [facility] Past Medical History Medical History Arthritis Deep vein thrombosis (~10/2015) 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 GERD (gastroesophageal reflux disease) Hypertension Osteoarthritis of left knee Osteochondral defect of femoral condyle Restless leg syndrome TIA (transient ischemic attack) 2019 Surgical History Surgical History History of hysterectomy History of left knee surgery (~02/2020) Partial lateral and medial meniscectomy with debridement of lateral condyle osteochondral defect. History of lumbar surgery Radiofrequency neurotomy. Prolapse of female pelvic organs (~06/2016) Status post colpocleisis per Dr. Bunch. Family History Family History Mother Cerebrovascular accident Sibling History of blood clots Hypertension Sibling History of blood clots Sibling Diabetes mellitus Hypertension Breast cancer Son Hypertension Social History Social History Social History: Surrogate decision maker: Gilberto Stauffer, spouse. Code status: Full code. Smoking status: Never smoker Second hand tobacco smoke exposure: Yes (Spouse smokes currently) Alcohol intake: never Substance use: never Substance use type: does not use Additional living arrangements comments: Patient lives with her in [place]. Gender identity (if verbalized by the patient): Female Spiritual care concerns: No Meds Home Medications and Allergies Home Medications Medication Instructions Recorded Confirmed Type gabapentin 100 mg HS 08/07/19 05/10/20 History pantoprazole 40 mg PO DAILY 08/07/19 05/10/20 History ropinirole 2 mg HS 08/07/19 05/10/20 History Calcium 600 + D(3) 1 cap PO DAILY 11/22/19 05/10/20 History amlodipine [Norvasc] 5 mg PO QAM #20 tablet 03/13/20 05/10/20 Rx aspirin [Children's Aspirin] 81 mg PO DAILY@0800 #30 tablet 03/13/20 05/10/20 Rx losartan 100 mg PO DAILY #20 tablet 03/13/20 05/10/20 Rx pravastatin 10 mg PO QAM #30 tablet 03/13/20 05/10/20 Rx meclizine 25 mg PO TID PRN #20 tablet 03/19/20 05/10/20 Rx diclofenac sodium 75 mg 75 mg PO BID 03/22/20 05/10/20 History tablet,delayed release Allergies Allergy/AdvReac Type Severity Reaction Status Date / Time cephalexin AdvReac Unknown NAUSEAA, Verified 05/10/20 09:55 VOMITIN
[2020-05-10] MEDS: LACTATED RINGERS 1,000 ML 150 ML IV CONT (10:11)
[2020-05-10 10:15] VITALS: BP 148/58
[2020-05-10] MEDS: BENZOCAINE (*SP) 60 ML SPRAY CAN (HURRICAINE) 1 SPRAY MUCOUS MEM (10:50)
[2020-05-10 11:03] VITALS: BP 110/61; PULSE 73; RESP 23; O2SAT 96
[2020-05-10 11:13] VITALS: BP 114/69; PULSE 66; RESP 23; O2SAT 96
[2020-05-10 11:23] VITALS: BP 151/80; PULSE 69; RESP 15; O2SAT 97
== END 2020-05-10 11:48 | disposition home or self-care (01) ==
PROVIDERS: PCP Family Medicine Adolescent Medicine; Visit Provider Internal Medicine Gastroenterology
PROC: 0DJ08ZZ Inspection of Upper Intestinal Tract, Via Natural or Artificial Opening Endoscopic (ICD-10-PCS; CPT 43235; principal; 2020-05-10 10:00)
DX: R13.10 Dysphagia, unspecified (principal); K21.0 Gastro-esophageal reflux disease with esophagitis; I10 Essential (primary) hypertension; Z86.73 Personal history of transient ischemic attack (TIA), and cerebral infarction without residual deficits; Z86.718 Personal history of other venous thrombosis and embolism; Z79.899 Other long term (current) drug therapy; Z79.82 Long term (current) use of aspirin
CPT/HCPCS: 43450; 43235; J2704; J7120

== ENCOUNTER 2021-02-27 13:08 | Emergency (ER) | payer MEDICARE, SELFPAY ==
--- NOTE | ~2021-02-27 | CT_ITS ---
EXAMINATION: CT abd pelvis lumbar w con EXAM DATE: 02/27/2021 15:03 INDICATION: LLQ abd pain, back pain . TECHNIQUE: Spiral CT of the abdomen and pelvis was performed following intravenous injection of 100 m L Omnipaque 350. Axial, coronal and sagittal images of the abdomen and pelvis were reviewed. Spiral CT lumbar spine was performed with same injection of contrast. Axial, coronal and sagittal images of the lumbar spine were reviewed. The dose-length product (DLP) for this examination was 669.75 mGy-cm . The exposure was tailored according to patient size (auto mA exposure control), and iterative lance nstruction (ASIR) was used as additional dose reduction technique. There is no prior study for edie rison. FINDINGS: There is cystic region in the pancreatic uncinate measuring about 2.1 x 0.8 cm without any complexity. Differential diagnosis includes dilated duct, pseudocyst, intraductal papillary mucinous neoplasm (IPMN), mucinous cystic neoplasm (MCN), and the less common serous cystadenoma and neuroendo crine tumor. Correlate for history of pancreatitis. The liver, spleen, adrenal glands are unremarkable. The gallbladder is distended but otherwise unrem arkable. There is no biliary duct dilation. Portal and splenic veins are patent. Kidneys enhance s ymmetrically. There is no hydronephrosis. The uterus is not identified and has likely been surgica lly resected. The bladder is unremarkable. There is no retroperitoneal or pelvic lymphadenopathy. There is mild scattered arteriosclerotic disease. The appendix is normal. The stomach and small bowel are unremarkable. There is moderate amount of c olonic stool. There is moderate descending and sigmoid predominant colonic diverticulosis. There is no adjacent inflammatory change to suggest diverticulitis. No free intraperitoneal gas. The heart is normal in size. There are no pericardial or pleural effusions. There are bibasilar linear opacit ies, subsegmental atelectasis. There are no osteoblastic or osteolytic lesions identified. There are no acute fractures identified. There is moderate lumbar dextroscoliosis. Moderate to arabella re lumbar disc disease. Chronic bilateral L5 spondylolysis with grade 1 anterolisthesis L5 on S1. Gra de 2 anterolisthesis L4 on L5. No endplate erosive change. Most narrowed neural foramina is the left L2-3 neural foramina which is moderately narrowed and the right L5-S1 neural foramina which is modera tely narrowed. Moderate to severe lower lumbar facet arthropathy. IMPRESSION: 1. No acute intra-abdominal findings. 2. Moderate colonic stool. 3. Pancreatic cystic lesion; one-year follow-up CT with contrast is indicated. 4. Chronic L5 spondylolysis, moderate lumbar dextroscoliosis. 5. Moderate to severe lumbar disc disease and lower lumbar arthropathy. 6. Colonic diverticulosis. Reviewed, dictated and finalized at location B.
--- NOTE | 2021-02-27 13:09 | ED.BACK ---
HPI - Back Pain/Injury General Chief Complaint: Back Pain/Injury Stated Complaint: BACK PAIN Time Seen by Provider: 02/27/21 13:09 Source: patient and family Mode of arrival: ambulatory Limitations: no limitations History of Present Illness HPI Narrative: Patient is a 76-year-old female with history of hypertension, acid reflux, chronic left knee pain who presents for evaluation of lower back pain. Patient states that she bent down to pick something up approximately a week ago when she experienced some acute back pain in her left lower back. She saw her primary care physician who advised her to take anti-inflammatory medications, however pain has persisted. Radiation of the pain down the lateral aspect of the left leg. No associated numbness or weakness. She is able to ambulate but this is limited secondary to pain. No fever, chills, nausea or vomiting. No history of cancer. No saddle anesthesia. No bowel or bladder incontinence. No urinary retention. Related Data Home Medications Medication Instructions Recorded Confirmed gabapentin 100 mg HS 08/07/19 09/20/20 pantoprazole 40 mg PO DAILY 08/07/19 09/20/20 ropinirole 2 mg HS 08/07/19 09/20/20 Calcium 600 + D(3) 1 cap PO DAILY 11/22/19 09/20/20 diclofenac sodium 75 mg 75 mg PO BID 03/22/20 09/20/20 tablet,delayed release atorvastatin 20 mg tablet 10 mg PO DAILY tablet 09/20/20 09/20/20 Allergies Allergy/AdvReac Type Severity Reaction Status Date / Time cephalexin AdvReac Unknown NAUSEAA, Verified 02/27/21 13:21 VOMITING Review of Systems Review of Systems: Narrative: CONSTITUTIONAL: Denies fever, chills, or sweats. EYES: Denies visual changes, redness, or discharge. ENT: Denies rhinorrhea, congestion, sore throat, or otalgia. CARDIOVASCULAR: Denies chest pain, palpitations, or edema. RESPIRATORY: Denies cough or dyspnea. GASTROINTESTINAL: Denies abdominal pain, nausea, vomiting, or diarrhea. GENITOURINARY: Denies dysuria or hematuria. SKIN: Denies rash or itching. MUSCULOSKELETAL: Reports left lower back pain, reports chronic left knee pain, denies any new or acute pain in the knee NEUROLOGIC: Denies headache, numbness, or weakness. [facility] Past Medical History Medical History (Updated 02/27/21 @ 16:06 by Edilma Berumen MD) Arthritis Deep vein thrombosis (~10/2015) 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 GERD (gastroesophageal reflux disease) Hypertension Osteoarthritis of left knee Osteochondral defect of femoral condyle Restless leg syndrome TIA (transient ischemic attack) 2019 Surgical History Surgical History History of hysterectomy History of left knee surgery (~02/2020) Partial lateral and medial meniscectomy with debridement of lateral condyle osteochondral defect. History of lumbar surgery Radiofrequency neurotomy. Prolapse of female pelvic organs (~06/2016) Status post colpocleisis per Dr. Bunch. Family History Family History Mother Cerebrovascular accident Sibling History of blood clots Hypertension Sibling History of blood clots Sibling Diabetes mellitus Hypertension Breast cancer Son Hypertension Social History Social History Social History: Surrogate decision maker: Gilberto Stauffer, spouse. Code status: Full code. Smoking status: Never smoker Second hand tobacco smoke exposure: Yes (Spouse smokes currently) Alcohol intake: never Substance use: never Substance use type: does not use Additional living arrangements comments: Patient lives with her in [place]. Gender identity (if verbalized by the patient): Female Spiritual care concerns: No Exam Narrative: Exam Narrative: GENERAL: Awake, alert, conversant HEAD: Normocephalic, atraumatic. EYES: PERRLA and EOMI. ENT: Nares clear, no rhinorrhea or epistaxis
[2021-02-27 13:11] VITALS: BP 153/70; PULSE 98; RESP 24; TEMP 36.2; O2SAT 99
[2021-02-27] MEDS: SODIUM CHLORIDE 0.9% IV 500 ML 999 ML IV CONT (13:53)
[2021-02-27] MEDS: diazePAM (*CRX) 5 MG TABLET 2.5 MG PO (13:54)
[2021-02-27] MEDS: ACETAMINOPHEN 500 MG TABLET 1000 MG PO (13:54)
[2021-02-27 14:15] LABS: Basophils Percent Auto 0.4 % (0.2-1.2); Eosinophils Absolute Auto 0.4 K/mm3 (0-0.3); Eosinophils Percent Auto 6.1 % (0-4.4); Hematocrit 40.5 % (37.0-47.0); Immature Granulocyte Absolute 0.05 K/mm3 (0.00-0.031); Immature Granulocyte Percent A 0.7 % (0-0.5); Lymphocytes Absolute Auto 1.08 K/mm3 (0.9-3.2); Lymphocytes Percent Auto 14.9 % (18.3-44.2); Mean Corpuscular HGB Conc 32.1 g/dl (32-36); Mean Corpuscular Hemoglobin 30.3 pg (26-34); Mean Corpuscular Volume 94.4 fl (80-100); Mean Platelet Volume 9.6 fl (7.4-10.4); Monocytes Absolute Auto 0.5 K/mm3 (0.1-0.6); Monocytes Percent Auto 7.2 % (2.6-8.5); Neutrophils Absolute Auto 5.1 K/mm3 (1.3-6.7); Neutrophils Percent Auto 70.7 % (45.5-73.1); Platelet Count Result 250 k/mm3 (150-375); Red Blood Count 4.29 M/mm3 (4.2-5.4); Red Cell Distribution Width 13.9 % (11.5-14.5); White Blood Count 7.3 K/mm3 (4.5-10.0)
[2021-02-27 14:20] LABS: Add Urine Microscopic? YES; Appearance Urine Clear (Clear); Bilirubin Urine Negative (Negative); Blood Urine 1+ (Negative); Color Urine Yellow (Yellow); Glucose Urine UA Negative (Negative); Ketones Urine Trace mg/dL (Negative); Leukocyte Esterase Ur Negative LEU/UL (Negative); Mucus Urine Rare /lpf; Nitrate Urine Negative (Negative); Protein Urine Negative (Negative); RBC Urine 0-2 /hpf (0-2); Specific Grav Ur 1.015 (1.001-1.035); Squamous Epithelial Cell Urine Occasional /hpf (Few); Urobilinogen Urine Negative mg/dL (<2.0); WBC Urine 0-3 /hpf
[2021-02-27 14:26] LABS: Alanine Aminotransferase 13 U/L (4-35); Albumin Level 3.6 g/dL (3.5-5.1); Alkaline Phosphatase 121 U/L (38-126); Anion Gap 8 mmol/L (8-16); Aspartate Amino Transferase 20 U/L (14-36); Bilirubin,Total 0.4 mg/dL (0.2-1.3); Blood Urea Nitrogen 13 mg/dL (7-17); Calcium 9.2 mg/dL (8.4-10.2); Carbon Dioxide 27 mmol/L (22-30); Chloride 103 mmol/L (98-107); Estimated CRCL calculation 42 ml/min; Estimated Glomerular Filt Rate > 60; Glucose 142 mg/dL (65-105); Potassium 3.8 mmol/L (3.4-5.0); Sodium 138 mmol/L (137-145)
[2021-02-27 16:02] VITALS: BP 178/102; PULSE 76; RESP 14; O2SAT 99
== END 2021-02-27 16:33 | disposition home or self-care (01) ==
PROVIDERS: Emergency Provider Emergency Medicine; PCP Family Medicine Adolescent Medicine
DX: M51.16 Intervertebral disc disorders with radiculopathy, lumbar region (principal); I10 Essential (primary) hypertension; K21.9 Gastro-esophageal reflux disease without esophagitis; M19.90 Unspecified osteoarthritis, unspecified site; Z86.718 Personal history of other venous thrombosis and embolism; M17.12 Unilateral primary osteoarthritis, left knee; G25.81 Restless legs syndrome; Z86.73 Personal history of transient ischemic attack (TIA), and cerebral infarction without residual deficits; K86.89 Other specified diseases of pancreas; M43.06 Spondylolysis, lumbar region; K57.90 Diverticulosis of intestine, part unspecified, without perforation or abscess without bleeding
CPT/HCPCS: 36415; 72132; 74177; 80053; 81001; 85025; 96361; 96374; 99284; A9270; J1100; J7040; Q9967

== ENCOUNTER 2021-07-25 11:47 | Outpatient (CLI) | payer MEDICARE, SELFPAY ==
--- NOTE | ~2021-07-25 | US_ITS ---
EXAMINATION: US venous doppler [facility] DATE: 07/25/2021 12:29 INDICATION: Bilateral lower limb swelling TECHNIQUE: Dimas scale images without and with compression and Doppler images of the bilateral lower e xtremity veins were obtained. COMPARISON: 08/07/2019 FINDINGS: The right common femoral vein, profunda femoral vein, femoral vein, popliteal vein, peroneal trunk, p osterior tibial veins, and greater saphenous vein are patent. The left common femoral vein, profunda femoral vein, femoral vein, popliteal vein, peroneal trunk, po sterior tibial veins, and greater saphenous vein are patent. IMPRESSION: 1. Patent bilateral lower extremity veins. No evidence of deep venous thrombosis. Reviewed, dictated and finalized at location B. [facility]ER IMPRESSION: 1. Patent bilateral lower extremity veins. No evidence of deep venous thrombosi s.
== END 2021-07-25 11:48 | disposition home or self-care (01) ==
PROVIDERS: PCP Family Medicine Adolescent Medicine; Visit Provider Physician Assistant
DX: M79.89 Other specified soft tissue disorders (principal); M79.662 Pain in left lower leg
CPT/HCPCS: 93970

== ENCOUNTER 2021-08-31 19:43 | Emergency (ER) | payer MEDICARE, SELFPAY ==
[2021-08-31 19:46] VITALS: BP 128/51; PULSE 114; RESP 18; TEMP 37.8; O2SAT 97
== END 2021-09-01 05:29 | disposition left against medical advice (07) ==
LOC: ANHED 20:33
PROVIDERS: PCP Family Medicine Adolescent Medicine
DX: R25.1 Tremor, unspecified (principal)
CPT/HCPCS: 99199